=== PATIENT | female | born 1970 | race Caucasian/White ===

== ENCOUNTER → 2017-09-13 09:38 | Outpatient (CLI) | payer OTHER, SELFPAY ==
[2016-12-07 10:00] VITALS: BMI 24.2
[2016-12-07 12:42] VITALS: BP 120/90
--- NOTE | 2017-09-13 09:53 | RAD_ITS ---
STUDY: X-RAY - LEFT ANKLE REASON FOR EXAM: Female, 47 years old. Trauma. TECHNIQUE: 3 view(s) of the ankle. COMPARISON: None. FINDINGS: Normal visualized distal tibia and fibula. Normal medial and lateral malleoli. Normal tibiotalar articulation and ankle mortise. There is a very small plantar calcaneal spur. The visualized subtalar, talonavicular, calcaneocuboid and tarsal articulations are normal. There is no demonstrated fracture. The soft tissue structures are unremarkable. RAD/Ankle min 3 Views IMPRESSION: No demonstrated acute osseous injury. Electronically Signed: Milo Beatty MD at 10:23 EST Tel , Service support ,
== END ==
PROVIDERS: Family Provider Family Medicine; PCP Family Medicine; Visit Provider Physician Assistant Medical
DX: S90.02XA Contusion of left ankle, initial encounter (principal); X58.XXXA Exposure to other specified factors, initial encounter
CPT/HCPCS: 73610

== ENCOUNTER → 2017-10-22 09:49 | Outpatient (CLI) | payer OTHER, SELFPAY ==
[2017-10-22 10:56] LABS: T4 Free Direct 1.03 ng/dL (0.76-1.46); Thyroid Stim Hormone (TSH) 1.71 uIU/mL (0.358-3.74)
== END ==
PROVIDERS: Family Provider Family Medicine; PCP Family Medicine; Visit Provider Nurse Practitioner Family
DX: R00.2 Palpitations (principal); R53.83 Other fatigue
CPT/HCPCS: 36415; 84439; 84443

== ENCOUNTER → 2017-12-23 20:00 | Outpatient (CLI) | payer OTHER, SELFPAY | PROVIDERS: Family Provider Family Medicine; PCP Family Medicine; Visit Provider Nurse Practitioner Acute Care | DX: G47.10 Hypersomnia, unspecified (principal); R06.83 Snoring | CPT/HCPCS: 95810 ==

== ENCOUNTER → 2018-02-18 14:20 | Outpatient (CLI) | payer OTHER, SELFPAY ==
[2018-02-18 14:51] LABS: Absolute Lymphocyte Count 1.49 X10^3/ul (0.83-4.51); Absolute Neutrophil Count 5.4 X10^3/uL (2.0-7.7); Basophil# 0.02 X10^3/uL; Basophil% 0.3 % (0-1); Eosinophil# 0.07 X10^3/uL; Eosinophils% 0.9 % (0-5); Hematocrit 42.5 % (37-47); Hemoglobin 14.4 g/dl (12.0-15.0); Lymphocyte # 1.49 X10^3/ul (4.0); Lymphocyte % 20.1 % (19-41); Mean Corp Hgb Conc 33.9 g/gl (32-36); Mean Corpuscular Hgb 32.7 pg (27.0-32.0); Mean Corpuscular Volume 96.6 fL (81-99); Mean Platelet Vol. 12.1 fl (6.2-12.0); Monocyte% 5.4 % (0-10); Neutrophil # 5.44 X10^3/uL (2.7-7.7); Neutrophil % 73.2 % (47-70); Platelet Count 141 K/mm3 (150-450); RBC Distribution Width CV 12.6 % (11.6-14.6); RBC Distribution Width SD 44.1 fl (35.1-43.9); White Blood Count 7.4 K/mm3 (4.4-11.0)
[2018-02-18 14:52] LABS: POSITIVE COUNT NO; POSITIVE DIFFERENTIAL NO; POSITIVE MORPHOLOGY NO
[2018-02-18 15:17] LABS: ALB/GLOB Ratio 1.2 RATIO (0.9-2.4); AST(SGOT) 22 U/L (15-37); Alanine Aminotransfer ALT/SGPT 28 U/L (13-56); Albumin, Serum 3.8 g/dL (3.2-5.0); Alkaline Phosphatase 96 U/L (45-117); Anion Gap 7 (5-15); BUN 11 mg/dL (7-18); BUN/Creat Ratio 16.2 RATIO (10-20); Calcium,Total 8.4 mg/dL (8.5-10.1); Chloride 104 mmol/L (98-107); Creatinine, Serum 0.68 mg/dL (0.55-1.02); EST Glomerular Filtration Rate 99 mL/min (>60); Est Glom Filt Rate - Afr Amer 120 mL/min (>60); Globulin 3.2 g/dL (2.2-4.2); Glucose 97 mg/dL (74-106); Magnesium 1.9 mg/dL (1.6-2.6); Phosphorus 2.9 mg/dL (2.5-4.9); Potassium 3.8 mmol/L (3.5-5.1); Sodium Level 139 mmol/L (136-145)
[2018-02-20 14:21] LABS: HEPATITIS B SURFACE AG Negative (Negative); Hep B Surface Antibodies Reactive (.)
== END ==
PROVIDERS: Family Provider Family Medicine; PCP Family Medicine; Visit Provider Nurse Practitioner Acute Care
DX: G35 Multiple sclerosis (principal); G43.909 Migraine, unspecified, not intractable, without status migrainosus
CPT/HCPCS: 36415; 80053; 83735; 84100; 85025; 86706; 87340

== ENCOUNTER → 2018-03-19 09:28 | Outpatient (CLI) | payer OTHER, SELFPAY ==
--- NOTE | 2018-03-19 09:39 | MRI_ITS ---
STUDY: MRI CERVICAL SPINE WITH AND WITHOUT CONTRAST REASON FOR EXAM: Female, 47 years old. MS and difficulty with gait TECHNIQUE: Standardized fat and water weighted pulse sequences were obtained in the sagittal and axial following I.V. administration of 8 ml of Gadavist contrast material. COMPARISON: MR cervical spine November 27, 2016 FINDINGS: Normal foramen magnum and brainstem-cervical cord junction. Normal craniovertebral junction. Normal anterior atlantoaxial articulation. Normal odontoid process. Normal cervical lordosis. Normal vertebral bodies and posterior osseous elements. C2-3: Normal endplates. Normal disc height, signal and morphology. Normal central canal and intervertebral neural foramina. C3-4: Normal endplates. Normal disc height, signal and morphology. Normal central canal and intervertebral neural foramina. C4-5: Normal endplates. Normal disc height, signal and morphology. Normal central canal and intervertebral neural foramina. C5-6: Normal endplates. Normal disc height, signal and morphology. Normal central canal and intervertebral neural foramina. C6-7: Normal endplates. Normal disc height, signal and morphology. Normal central canal and intervertebral neural foramina. C7-T1: Normal endplates. Normal disc height, signal and morphology. Normal central canal and intervertebral neural foramina. Normal cervical cord. Normal visualized soft tissue structures. MRI/Spine Cervical W/WO Contrast IMPRESSION: Normal unenhanced and enhanced MR examination of the cervical spine. Electronically Signed: Anselmo Sinclair MD at 0:05 EDT , Service support ,
--- NOTE | 2018-03-19 09:39 | MRI_ITS ---
STUDY: MRI BRAIN WITH AND WITHOUT CONTRAST REASON FOR EXAM: Female, 47 years old. Multiple sclerosis. Fatigue. Muscle spasm. TECHNIQUE: Standardized multiplanar fat and water weighted pulse sequences were obtained. 8 ml of Gadavist contrast material was administered intravenously for the contrast portion of the examination. COMPARISON: November 27, 2016 FINDINGS: The pituitary and pineal regions are normal. The brainstem is normal. The corpus callosum is normal. The 7th and 8th nerve complexes are normal. Both cerebellopontine angles are clear. There is a minimal degree of tonsillar ectopia (3.8 mm). The cerebellar vermis and both are otherwise normal. The ventricles, basal cisterns and cortical sulci are normal with no midline shift and no intra or extra-axial hemorrhage or tumor mass. There is no acute infarction. There continues to be abnormal high signal lesions in the FLAIR data sets located in the left periventricular area (measuring 9.4 x 4.9 mm), just inferior to the right occipital horn measuring 4.8 mm, in a juxtacortical area in the supraventricular right hemisphere measuring 5.5 mm and in the juxtacortical area in the left temporal bone around the sylvian fissure posteriorly. These demonstrate enough Flores's criteria to warrant the diagnosis of multiple sclerosis. The largest index lesions in the left periventricular area had measured 12.6 x 4.5 mm in the prior study of November 27, 2016 and the lesion in the left temporal lobe looks slightly smaller. There are no lesions in the infratentorial space. The calvarium is intact. There are no scalp swelling. The vessels at the base of the brain are normal. The orbits, paranasal sinuses and mastoid air cells are normal. No evidence of optic neuritis. . . MRI/Brain W/WO Contrast IMPRESSION: Flores's criteria are satisfied to warrant a diagnosis of multiple sclerosis. The 2 index lesions in the left periventricular area and in the juxtacortical area in the left temporal lobe look slightly smaller than had been seen in the previous examination. There are no new lesions and no enhancing lesions Mild tonsillar ectopia. Electronically Signed: David Mccormick, at 5:49 EDT Tel , Service support ,
--- NOTE | 2018-03-19 09:39 | MRI_ITS ---
STUDY: MRI THORACIC SPINE WITH AND WITHOUT CONTRAST REASON FOR EXAM: Female, 47 years old. FATIGUE, MUSCLE SPASMS, GAIT ISSUES, MS 11 YRS. TECHNIQUE: 8 ml of Gadavist was administered intravenously for the contrast portion of the examination. COMPARISON: None. FINDINGS: Normal kyphosis of the thoracic spine. There is no substantial scoliosis. T1-2, T2-3, T3-4, T4-5, T5-6, T7-8, T8-9, T9-10, T10-11, T11-12: There is minimal diffuse disc desiccation and intervertebral disc space narrowing without significant central canal or foraminal stenosis. At T6/T7 there is mild disc space narrowing and endplate spondylosis. There is endplate edema as well. At T6 there is a 8mm enhancing nodule (sagittal image #5 series 9) Normal visualized thoracic cord. The soft tissue structures are unremarkable. MRI/Spine Thoracic W/WO Contrast IMPRESSION: Minimal degenerative changes. 8mm enhancing lesion at T6. Further evaluation with CT is recommended. Electronically Signed: Guanaco Parsons MD at 11:17 EDT Tel , Service support ,
== END ==
PROVIDERS: Family Provider Family Medicine; PCP Family Medicine; Visit Provider Nurse Practitioner Acute Care
DX: G35 Multiple sclerosis (principal)
CPT/HCPCS: 70553; 72156; 72157; A9585

== ENCOUNTER 2018-04-02 09:00 | Outpatient (RCR) | payer OTHER, SELFPAY ==
--- NOTE | 2017-12-10 10:39 | HP.PTEVAL ---
Patient's Visit Information ANDREI PINON is a 47 year old F referred to Physical Therapy by LUANNE Dyer with a diagnosis of Migraines. Date of Evaluation: 12/10/17 Physical Therapist: Viri Galeas - Visit Plan Frequency: 2x /Week Duration: 3 Weeks Plan: Modality of dry needling, manual therapy, posture - Subjective Subjective: Migraine LU- about 8 years- Has MS and maybe related. No trauma. Has migraines a few times a week and once they are there they are hard to get rid of. Located along the right temporal and frontal. Triggers: nothing that she can think of. Uses Imatrex and advil- does not do botox yet. Does get sick sometimes but most of the time she is able to push through. No pain that radiates through the jaw or cervical pain- does have thoracic and back pain. N/T in the foot but none in the UE. 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 PMHx: MS, hole in her heart, palpitatinos, A-fib, RA. Meds: Imatrex, Techfodera, Inderol, Topomax, Tegradol, D3, roboxin, paxil. Sleep: disturbed. - Objective Posture: FH, RS, increased kyphosis. Gait: no deviation in LE- decreased trunk rotation. ROM: WFL. Strength: cervical: 4+/5, Scap: fair plus, Shoulder: 4+/5, Elbow: 5/5, Document Review Specialist: equal. Palpation: tender throughout scapula, occiput, cervical musculature and temporalis, Nerve distribution: greater aricular, trigeminal nerve, - Goals Goal 1:: Patient will be I with HEP and progression Goal Time Frame: 4-6 Weeks Goal 2:: Patient will report 1 migraine per week Goal Time Frame: 4-6 Weeks - Rehabilitation Potential Physical Therapy Diagnosis: Patient presents with increased muscle tension and nerve pain associated with migraines Rehabilitation Potential: Fair - Anticipated Interventions Patient/Client Instruction: Educate patient on: Benefits of Fitness Program For the Purpose of:: To improve ability to perform ADL's Therapeutic Exercise to Include: Strength training, Endurance training, Body mechanics, Postural training, Passive ROM, Active ROM, Scapular Strength/Stabilization For the Purpose of:: To improve muscle performance and motor function Manual Therapy Techniques to Include: Mobilization, Functional dry needling, Soft tissue mobilization For the Purpose of:: To improve nutrient delivery to tissue Thank you for the opportunity to evaluate your patient. For Medicare and Medicare HMO plans, please review the plan of care and approve it. It will need to be FAXED BACK to us at [phone] for Medicare purposes. Please let me know if there are questions or concerns regarding this plan of care. Physician Signature: Date:
--- NOTE | 2018-01-07 08:41 | HP.PTEVAL2_ITS ---
Patient's Visit Information ANDREI PINON is a 47 year old F referred to Physical Therapy by LUANNE Dyer with a diagnosis of Plantar Fascitis. Date of Evaluation: 01/07/18 Physical Therapist: Viri Galeas - Visit Plan Frequency: 2x /Week Duration: 2 Weeks Plan: Focus on LE stretching and modalities as needed - Subjective Subjective: Patient reports that her foot has been bothering her about a year- last summer it started. Along the bottom of the foot its burning in the arch. It can also ache. Pain radiates to the achilles but not to the knee. Work: stands on her feet all day- does not always wear supportive shoes but does use memory foam in her shoes. Does have inserts but doesn't always wear them in the summer. Worst: 7/10 Agg: being on her feet all day. Best: 0/10 Eases: being off them. Sleep: disturbed- wakes her up. Is currently doing stretching and water bottle roll in the past few weeks. PMHx: MS, hole in her heart, OA, RA Meds: Imatrex, Techfodera, Inderol, Topomax, Tegradol, D3, roboxin, paxil, migraines. - Objective Objective: Posture: can correct with verbal cues. Gait: no deviation noted. Observation: increased pes planus- poor support shoes. ROM: WFL. Strength: 5/ 5. Palpation: tender along arch and along achilles tendon medially. HR/TR: able. SLS: 5 sec then LOB. Flex: HS: mod, Gastroc: mod, Soleus: mod - Goals Goal 1:: Patient will be I with HEP and progression Goal Time Frame: 4-6 Weeks Goal 2:: Patient will report 0/10 pain for 1 week in the arch Goal Time Frame: 4-6 Weeks Goal 3:: Patient will demo mild restriction in flexibility Goal Time Frame: 4-6 Weeks - Rehabilitation Potential Physical Therapy Diagnosis: Patient presents with hypomobility- she has increased pes planus and decreased flexibility leading to increased pain with ADL's. Rehabilitation Potential: Good - Anticipated Interventions Patient/Client Instruction: Educate patient on: Benefits of Fitness Program Therapeutic Exercise to Include: Balance training, Body mechanics, Postural training, Flexibilty training, Passive ROM, Active ROM For the Purpose of:: To improve muscle performance and motor function, To improve ability to perform ADL's Manual Therapy Techniques to Include: Mobilization, Passive ROM, Functional dry needling, Soft tissue mobilization For the Purpose of:: To improve nutrient delivery to tissue Cryotherapy (ice pack, ice massage): Yes Thermo therapy (hot pack): Yes Ultrasound (thermal/non thermal): Yes Thank you for the opportunity to evaluate your patient. For Medicare and Medicare HMO plans, please review the plan of care and approve it. It will need to be FAXED BACK to us at [phone] for Medicare purposes. Please let me know if there are questions or concerns regarding this plan of care. Physician Signature: Date:
--- NOTE | 2018-05-05 11:46 | HP.PT.NRP ---
HP - Discharge Summary (1) - Patient Information ANDREI PINON was seen in my office for initial evaluation on 12/10/17. The following Plan of Care was established for this patient: Initial Frequency: 2x /Week Initial Duration: 3 Weeks - Anticipated Interventions Patient/Client Instruction: Educate patient on: Benefits of Fitness Program For the Purpose of:: To improve ability to perform ADL's Therapeutic Exercise to Include: Strength training, Endurance training, Body mechanics, Postural training, Passive ROM, Active ROM, Scapular Strength/Stabilization For the Purpose of:: To improve muscle performance and motor function Manual Therapy Techniques to Include: Mobilization, Functional dry needling, Soft tissue mobilization For the Purpose of:: To improve nutrient delivery to tissue This patient was last seen in our office . Pertinent comments regarding their Physical therapy will appear below: Patient has not attended physical therapy in over 4 weeks. At this time patient is appropriate for d/c and return to MD as needed. At this point I will be discontinuing this patient from physical therapy. I would be happy to see this patient again in the future if found appropriate by the physician. Thank you! Viri Galeas
== END 2018-04-02 19:00 | disposition home or self-care (01) ==
LOC: PT 09:00
PROVIDERS: Family Provider Family Medicine; PCP Family Medicine; Visit Provider Nurse Practitioner Acute Care
DX: M72.2 Plantar fascial fibromatosis (principal)
CPT/HCPCS: 97140; 97161

== ENCOUNTER → 2018-04-07 06:24 | Outpatient (CLI) | payer OTHER, SELFPAY ==
--- NOTE | 2018-04-07 13:28 | STRESSREP ---
Stress Test Report Date: 04/07/2018 Procedure: Pharmacologic stress nuclear imaging study Indications: Chest pain Consent: Per the patient Procedure: The patient underwent pharmacologic (Regadenoson) evaluation with a peak heart rate of 105 beats per minute (60 predicted maximal heart rate) and a peak blood pressure of 118/78 mmHg. The baseline ECG demonstrated sinus bradycardia; nonspecific ST segment abnormality. The peak pharmacologic ECG demonstrated continued nonspecific ST segment abnormality. There were no cardiac dysrhythmias pretest, during pharmacologic infusion, or recovery. There was no complaint of chest discomfort during pharmacologic infusion or recovery. The examination was discontinued secondary to completion of protocol. Impression: 1. Pharmacologic (Regadenoson) evaluation 2. Peak pharmacologic ECG with continued nonspecific ST segment abnormality. 3. There were no cardiac dysrhythmias pretest, during pharmacologic infusion, or recovery 4. Nuclear images pending Myocardial perfusion imaging study: Technique: The patient was injected with 11.5 millicuries of technetium 99m Cardiolite and subsequently rest SPECT Cardiolite nuclear imaging was obtained in the horizontal long, vertical long, and short axis views. The patient underwent pharmacologic (Regadenoson) evaluation with a peak heart rate of 105 beats per minute (60 % percent predicted maximal heart rate) and a peak blood pressure of 118/78 mmHg. The patient was injected with 34.2 millicuries of technetium 99m Cardiolite and subsequently stress SPECT Cardiolite nuclear imaging was obtained in the horizontal long, vertical long, and short axis views. A gated Cardiolite study at peak stress was obtained. Interpretation: Rest and stress SPECT Cardiolite nuclear imaging status post realignment, normalization, and attenuation correction demonstrate status post rest a small area of subtle diminished tracer uptake in the mid to distal anterior/anteroapical segments. There are similar type findings on the stress polar map images. There is end systolic thickening and brightening. The gated Cardiolite study demonstrates myocardial thickening and inward wall motion. The reported LVEF is 66 %. Impression: 1. Rest and stress SPECT currently nuclear imaging demonstrate status post stress a small area of subtle diminished tracer uptake in the mid to distal anterior/anteroapical segments potentially compatible shifting soft tissue attenuation/artifact although an area of stress-induced myocardial ischemia cannot necessarily be excluded. 2. The gated Cardiolite study reports an LVEF of 66 %. This note was generated with [employer] software. It may contain incorrect words, spelling, and punctuation that were not noted in checking the note before signing.
== END ==
PROVIDERS: Family Provider Family Medicine; PCP Family Medicine; Visit Provider Internal Medicine Cardiovascular Disease
DX: I48.0 Paroxysmal atrial fibrillation (principal); I49.1 Atrial premature depolarization; I49.3 Ventricular premature depolarization; I47.1 Supraventricular tachycardia; Q21.1 Atrial septal defect; I51.0 Cardiac septal defect, acquired
CPT/HCPCS: 78452; 93017; 93306; A9500; A4216; J2785

== ENCOUNTER → 2018-04-15 14:48 | Outpatient (CLI) | payer OTHER, SELFPAY ==
[2018-04-15 15:17] LABS: Hematocrit 43.1 % (37-47); Hemoglobin 14.2 g/dl (12.0-15.0); Mean Corp Hgb Conc 32.9 g/gl (32-36); Mean Corpuscular Hgb 31.7 pg (27.0-32.0); Mean Corpuscular Volume 96.2 fL (81-99); Mean Platelet Vol. 11.2 fl (6.2-12.0); Platelet Count 150 K/mm3 (150-450); RBC Distribution Width CV 12.6 % (11.6-14.6); Red Blood Count 4.48 M/mm3 (4.2-5.4); White Blood Count 6.3 K/mm3 (4.4-11.0)
[2018-04-15 15:32] LABS: Scan Indicated on CBC? Y/N NO
[2018-04-15 15:52] LABS: Anion Gap 6 (5-15); BUN 14 mg/dL (7-18); BUN/Creat Ratio 16.1 RATIO (10-20); Calcium,Total 8.7 mg/dL (8.5-10.1); Chloride 104 mmol/L (98-107); Creatinine, Serum 0.87 mg/dL (0.55-1.02); EST Glomerular Filtration Rate 74 mL/min (>60); Est Glom Filt Rate - Afr Amer 90 mL/min (>60); Glucose 71 mg/dL (74-106); Potassium 3.9 mmol/L (3.5-5.1); Sodium Level 138 mmol/L (136-145)
[2018-04-15 15:59] LABS: International Normalized Ratio 1.1; Prothrombin Time (Protime)PT. 14.3 SECONDS (11.7-14.9)
[2018-04-15 16:00] LABS: Partial Thromboplast Time 38.3 Seconds (24.1-36.2)
== END ==
PROVIDERS: Family Provider Family Medicine; PCP Family Medicine; Visit Provider Internal Medicine Cardiovascular Disease
DX: R94.39 Abnormal result of other cardiovascular function study (principal); R07.9 Chest pain, unspecified
CPT/HCPCS: 36415; 80048; 85027; 85610; 85730

== ENCOUNTER 2018-05-05 07:48 | Day surgery (SDC) | payer OTHER, SELFPAY ==
[2018-05-04 07:23] VITALS: BMI 24.5
--- NOTE | 2018-05-05 10:38 | CL.D_ITS ---
Patient Name: ANDREI PINON Study Date: 05/05/2018 Performing: Nic Webb MD Ht: 66.14 inches 168 cm : 1970 Wt: 152.12 lbs 69 kg Age: 48 Gender: female BSA: 1.78 PROCEDURE(S) PERFORMED HU70-IGD/COR/LV CLINICAL PROFILE AND INDICATIONS Indications: Cardiac Arrythmia, Other: Abnormal Stress Nuclear Study, Other Heart Failure: None Stress/Imaging Stress Test w/SPECT MPI: Yes Result: PositiveStress Test with SPECT MPI: Positive Angina Classification Anginal Classification w/in 2 Weeks: No symptoms CAD Presentations: No Sxs, no angina. CONCLUSIONS Elevated Left Ventricular End Diastolic Pressure Normal LV size, wall motion,and systolic function LVEF: by LV gram 65 % Normal coronary arteries RECOMMENDATIONS Risk factor modification Medical therapy DESCRIPTION OF PROCEDURE The patient arrived to the procedure lab. The risks and benefits of the procedure as well as a full d escription of our services here and current unavailability of surgical backup were fully explained to the patient and/or their significant other prior to the catheterization. The Timeout was completed, verifying the correct patient and procedure. The patient's procedural site was prepped and draped in the usual fashion. Local anesthetic was given subcutaneously to right radial region with Lidocaine 2% . Using a modified Seldinger technique, arterial access was obtained via the right radial artery, a 6 Fr sheath was inserted. Left Coronary Artery selective angiography was performed in multiple views u sing a 5 Fr. JL3.5 catheter. Right Coronary Artery selective angiography was then performed in multip le views using a 5 Fr. 3DRC (Zeke) catheter. Left Ventriculography was performed in ROD projectio n using a 5 Fr. Pigtail catheter. LV to AO pullback pressures were then recorded.The arterial sheath was pulled and a TR Band was applied for hemostasis w/ 13ml of air CORONARY ANGIOGRAPHY DOMINANCE: Right Dominant LEFT HEART ASSESSMENT Left Ventricular Ejection Fraction: by LV Gram 65 % Normal LV wall motion Elevated Left Ventricular End Diastolic Pressure LVEDP: 17 mmHg LEFT MAIN: Angiographically normal LEFT ANTERIOR DECENDING ARTERY: Angiographically normal CIRCUMFLEX ARTERY: Angiographically normal RIGHT CORONARY ARTERY: Angiographically normal VALVE FINDINGS: Normal Aortic Valve function Normal Mitral Valve function AORTIC ROOT: Angiographically normal COMPLICATIONS No Complications PROCEDURE MEDICATIONS Versed 1 mg IV Fentanyl 50 mcg IV Oxygen: 2 L/min via nasal cannula Heparin diluted in 23cc Heparinized saline. Patient given 10cc IA of this solution. 05/05/2018 10:05: 17 Verapamil 2.5mg, Ntg 100mcgs, 2000 units of Heparin diluted in 23cc Heparinized saline. Patient give n 10cc IA of this solution. 05/05/2018 10:05:17 IV Bolus: .9 NaCl 150ml total 05/05/2018 10:10:35 SUMMARY OF HEMODYNAMIC DATA Time AIR REST ECG 08:18:48 AO 105/59 (80) SA 10:07:23 LV 129/-2, 21 10:17:34 LV 123/4, 17 10:17:40 LV 122/5, 17 10:19:04 LVp 118/4, 19 10:19:10 AOp 122/63 (88) 10:19:15 Signed By Nic Webb MD On 05/05/2018 10:37:43 AM Nic Webb MD
== END 2018-05-05 13:10 | disposition home or self-care (01) ==
LOC: CLSP 07:49
PROVIDERS: Family Provider Family Medicine; PCP Family Medicine; Visit Provider Internal Medicine Cardiovascular Disease
DX: R94.39 Abnormal result of other cardiovascular function study (principal); I48.0 Paroxysmal atrial fibrillation; I49.1 Atrial premature depolarization; I49.3 Ventricular premature depolarization; I47.1 Supraventricular tachycardia; I51.0 Cardiac septal defect, acquired; Q21.1 Atrial septal defect; Z79.82 Long term (current) use of aspirin; Z79.899 Other long term (current) drug therapy; F17.200 Nicotine dependence, unspecified, uncomplicated
CPT/HCPCS: 71046; 93458; J7040; Q9967; C1769; C1894

== ENCOUNTER → 2018-05-06 14:39 | Outpatient (CLI) | payer OTHER, SELFPAY ==
--- NOTE | 2018-05-06 14:41 | CT_ITS ---
STUDY: CT THORACIC SPINE WITHOUT CONTRAST REASON FOR EXAM: Female, 48 years old. Muscle spasms and gait issues. History of multiple sclerosis. Abnormal MRI thoracic spine. RADIATION DOSAGE (If Supplied By Facility): CTDIvol = ( 23.20 ) mGy, DLP = ( 782.80 ) mGycm TECHNIQUE: The patient was scanned in a multi detector CT scanner. High resolution imaging was performed. Images were obtained from C6-7 to L1-2. Sagittal and coronal images were reconstructed. Individualized dose optimization techniques were used for this CT. COMPARISON: None. FINDINGS: Normal visualized cervical spine. Normal kyphosis of the thoracic spine. There is no substantial scoliosis. There is anterior endplate spondylosis and sclerosis of the T6-7 vertebra correlating to the area of abnormal signal intensity on MRI. Additional anterior endplate spondylosis seen T7-T10. There is multilevel degenerative disc disease with loss of the disc space heights. Vacuum phenomenon and system with disc dehydration suggests that the anterior T6-7 and T7-8 disc spaces. There is no demonstrated fracture. The nodule in the posterior T6 vertebra on MRI is not apparent here. The soft tissue structures are unremarkable. There is minor bronchiectasis or emphysematous change in the periphery of the posterior lung gary. CT/Spine Thoracic without Contras IMPRESSION: 1. Spondylotic degenerative changes of the spine, most prominent at T6-7, where there is additional anterior osseous sclerosis that correlates to the region of signal abnormality on MRI. 2. The small nodule seen in the posterior T6 vertebra on MRI is not apparent here. Electronically Signed: Chalo Andrade MD at 16:56 EDT , Service support ,
== END ==
PROVIDERS: Family Provider Family Medicine; PCP Family Medicine; Referring Provider Clinical Nurse Specialist Acute Care; Visit Provider Clinical Nurse Specialist Acute Care
DX: G35 Multiple sclerosis (principal); M89.9 Disorder of bone, unspecified
CPT/HCPCS: 72128

== ENCOUNTER 2018-05-11 08:05 | Emergency (ER) | payer OTHER, SELFPAY ==
[2018-05-11 08:05] VITALS: BP 115/87; PULSE 72; RESP 18; TEMP 36.6; O2SAT 98; BMI 24.5
--- NOTE | 2018-05-11 08:14 | VDUE_ITS ---
Reason For Study: RUE pain s/p RT Radial artery heart cath Right Proximal Right jugular vein is spontaneous, widely patent, phasic, with no intraluminal echogenicity noted. Right subclavian vein is spontaneous, widely patent, phasic, with no intraluminal echogenicity noted. Right Lower Arm Right radial vein is compressible. Right ulnar vein is compressible. Right Arm Right axillary vein is spontaneous, patent, phasic, competent, compressible and demonstrates augmentation. Right brachial vein is compressible. Right cephalic vein is compressible. Right basilic vein is compressible. Incidental finding of RT Radial artery distal absent color flow and doppler signal. Mid - 21.6 cm/s Prox - 12.0 cm/s Prelim given to Dr. Roblero. Interpretation Summary No evidence for acute deep venous thrombosis[right] upper extremity with patent and compressible cephalic and basilic veins. Thrombosed distal right radial artery. Ordering Physician: Hugo Roblero Referring Physician: Ricco Chang Performed By: Yanna Camp RVT ???
--- NOTE | 2018-05-11 08:57 | ED.DCSUM_ITS ---
- ER Visit Summary Date of Service: 05/11/18 Chief Complaint: Right forearm pain History of Present Illness: The patient is a 48 F who presents with right forearm pain. Patient had a cardiac catheterization using a right radial approach 6 days ago. Ever since then she has had pain. It is aching as well as sharp. She has been using ice and heat but has not helped. She denies any swelling. No redness. She just restarted Eliquis today. She takes this for atrial fibrillation as well as a history of DVT in the family. Physical Examination: Vital signs reviewed. Right forearm exam reveals tenderness in the distal forearm area. There is no swelling. She does have a 2+ radial pulse. Her capillary refill is less than 2 seconds on the hand and fingertips. Her neurologic exam is intact and normal. Test Results: Right upper extremity ultrasound reveals absent color flow and Doppler signal of the right radial artery distally. The technologist notes that the flow is normal in the proximal forearm. Emergency Department Course and Treatment: I discussed this with Dr. Webb. He states that the patient had a delay in the restart of her Eliquis until this morning. The patient admits that this morning was her first dose in about a week. Dr. Webb states that this is something that can happen. Her hand is warm with good capillary refill. He states that he will follow-up with the patient. Restarting the Eliquis should help with this problem. Again, the patient has good flow to her hand. I informed her to use ice and heat. She will take Tylenol to help with the discomfort. Treatment Plan: [] Disposition: Discharge Impression: Right radial artery thrombus This note was generated with [employer] dictation software. It may contain incorrect words, spelling, and punctuation that were not noted in review of the chart prior to signing ED Disposition - Plan for ED Patient: Chief Complaint: Upper Extremity Injury Referrals: Ricco Chang DO [Primary Care Provider] -
--- NOTE | 2018-05-11 08:57 | ED.DEP ---
ED Disposition - Plan for ED Patient: Disposition: Home or Assisted Living Chief Complaint: Upper Extremity Injury Instructions: ED DVT Referrals: Ricco Chang DO [Primary Care Provider] -
[2018-05-11 09:07] VITALS: BP 109/53; PULSE 59; RESP 12; O2SAT 99
== END 2018-05-11 09:09 | disposition home or self-care (01) ==
PROVIDERS: Emergency Provider Emergency Medicine; Family Provider Family Medicine; PCP Family Medicine
DX: I74.2 Embolism and thrombosis of arteries of the upper extremities (principal); I48.91 Unspecified atrial fibrillation; I25.10 Atherosclerotic heart disease of native coronary artery without angina pectoris; G35 Multiple sclerosis; Z79.01 Long term (current) use of anticoagulants; Z79.899 Other long term (current) drug therapy; Z72.0 Tobacco use
CPT/HCPCS: 93971; 99282

== ENCOUNTER → 2018-06-10 07:53 | Outpatient (CLI) | payer OTHER, SELFPAY ==
[2018-06-10 08:21] VITALS: BP 97/46; PULSE 69; RESP 16; TEMP 36.7; O2SAT 99; BMI 25.0
[2018-06-10] MEDS: DiphenhydrAMINE 50 MG/ML Syringe 25 MG IV (08:40)
[2018-06-10] MEDS: MethylPREDNISolone 125 MG/2 ML Vial 100 MG IV (08:40)
[2018-06-10 10:02] VITALS: BP 102/50; PULSE 53; RESP 16; TEMP 36.4; O2SAT 98
[2018-06-10 10:36] VITALS: BP 89/52; PULSE 57; TEMP 36.8
[2018-06-10 11:09] VITALS: BP 92/57; PULSE 60; RESP 16; O2SAT 98
[2018-06-10 11:40] VITALS: BP 95/51; PULSE 64; RESP 16; TEMP 36.6; O2SAT 100
[2018-06-10 12:16] VITALS: BP 96/51; PULSE 67; RESP 16; O2SAT 97
== END ==
PROVIDERS: Family Provider Family Medicine; PCP Family Medicine; Referring Provider Nurse Practitioner Acute Care; Visit Provider Nurse Practitioner Acute Care
DX: G35 Multiple sclerosis (principal)
CPT/HCPCS: 96365; 96366 ×2; 96374; 96375; J7050; A4216; J2350

== ENCOUNTER → 2018-06-24 07:49 | Outpatient (CLI) | payer OTHER, SELFPAY ==
[2018-06-24 08:17] VITALS: BP 82/56; PULSE 81; RESP 16; TEMP 36.1; O2SAT 94; BMI 25.0
--- NOTE | 2018-06-24 09:40 | NURSING ---
WAITING ON DOCTOR OR CONFIGURATION MANAGER TO CALL BACK REGARDING DEVELOPMENT OF NECK PAIN POST FIRST OCREVUS INFUSION. PT DOES NOT WISH TO WAIT, LEAVING AND RESCHEDULED FOR NEXT WEEK.
== END ==
PROVIDERS: Family Provider Family Medicine; PCP Family Medicine; Referring Provider Nurse Practitioner Acute Care; Visit Provider Nurse Practitioner Acute Care
DX: G35 Multiple sclerosis (principal)
CPT/HCPCS: A4216

== ENCOUNTER → 2018-08-13 11:28 | Outpatient (CLI) | payer OTHER, SELFPAY ==
--- NOTE | 2018-08-13 11:32 | US_ITS ---
STUDY: Soft tissue neck ULTRASOUND REASON FOR EXAM: Female, 48 years old. Pain in the left neck lateral and posterior TECHNIQUE: Ultrasound evaluation of the thyroid was performed with real-time and static perez-scale imaging. COMPARISON: None. FINDINGS: Normal soft tissue planes. No solid or cystic abnormality. US/Head/Neck Soft Tissue IMPRESSION: No solid or cystic mass. Electronically Signed: Pradip Brito MD at 8:04 EST , Service support ,
== END ==
PROVIDERS: Family Provider Family Medicine; PCP Family Medicine; Referring Provider Nurse Practitioner Acute Care; Visit Provider Nurse Practitioner Acute Care
DX: M89.9 Disorder of bone, unspecified (principal); R52 Pain, unspecified; G35 Multiple sclerosis
CPT/HCPCS: 76536

== ENCOUNTER → 2018-08-21 08:46 | Outpatient (CLI) | payer OTHER, SELFPAY ==
[2018-06-24 08:17] VITALS: BMI 25.0
--- NOTE | 2018-08-21 08:53 | RAD_ITS ---
STUDY: X-RAY - RIGHT TIBIA AND FIBULA REASON FOR EXAM: Female, 48 years old. Anterior tibial pain. Lump in the anterolateral proximal calf. History of surgery 7 years ago. TECHNIQUE: 2 view(s) of the tibia and fibula were obtained. A hemostat was placed over the area of some to hematology and palpable lump. COMPARISON: None. FINDINGS: There are 3 metallic screws overlying the proximal tibial shaft in the region of the anterior tibial tuberosity.. Screws are intact with no evidence for loosening. Otherwise normal visualized tibia. Normal visualized fibula. The soft tissue structures are unremarkable. There is no visualized abnormality in the region marked by a hemostat. RAD/Tibia & Fibula 2 Views IMPRESSION: 3 surgical screws overlying the proximal tibia. Otherwise normal x-ray examination of the tibia and fibula. Electronically Signed: Berry Urias MD at 23:38 EST , Service support ,
== END ==
PROVIDERS: Family Provider Family Medicine; PCP Family Medicine; Referring Provider Family Medicine; Visit Provider Family Medicine
DX: M79.604 Pain in right leg (principal)
CPT/HCPCS: 73590

== ENCOUNTER → 2018-10-30 09:34 | Outpatient (CLI) | payer OTHER, SELFPAY ==
[2018-06-24 08:17] VITALS: BMI 25.0
[2018-10-30 10:23] LABS: Absolute Lymphocyte Count 1.84 X10^3/ul (0.83-4.51); Absolute Neutrophil Count 6.7 X10^3/uL (2.0-7.7); Basophil# 0.02 X10^3/uL; Basophil% 0.2 % (0-1); Eosinophil# 0.07 X10^3/uL; Eosinophils% 0.8 % (0-5); Hematocrit 43.1 % (37-47); Hemoglobin 14.3 g/dl (12.0-15.0); Lymphocyte # 1.84 X10^3/ul (4.0); Lymphocyte % 19.9 % (19-41); Mean Corp Hgb Conc 33.2 g/gl (32-36); Mean Corpuscular Hgb 32.4 pg (27.0-32.0); Mean Corpuscular Volume 97.5 fL (81-99); Mean Platelet Vol. 11.6 fl (6.2-12.0); Monocyte# 0.57 X10^3/uL; Monocyte% 6.2 % (0-10); Neutrophil # 6.74 X10^3/uL (2.7-7.7); Neutrophil % 72.7 % (47-70); Platelet Count 180 K/mm3 (150-450); RBC Distribution Width CV 12.2 % (11.6-14.6); RBC Distribution Width SD 42.6 fl (35.1-43.9); Red Blood Count 4.42 M/mm3 (4.2-5.4); White Blood Count 9.3 K/mm3 (4.4-11.0)
[2018-10-30 10:25] LABS: POSITIVE COUNT NO; POSITIVE DIFFERENTIAL NO; POSITIVE MORPHOLOGY NO
[2018-10-30 10:50] LABS: ALB/GLOB Ratio 1.2 RATIO (0.9-2.4); AST(SGOT) 20 U/L (15-37); Alanine Aminotransfer ALT/SGPT 25 U/L (13-56); Albumin, Serum 3.6 g/dL (3.2-5.0); Alkaline Phosphatase 82 U/L (45-117); Anion Gap 7 (5-15); BUN 13 mg/dL (7-18); BUN/Creat Ratio 16.3 RATIO (10-20); Calcium,Total 8.2 mg/dL (8.5-10.1); Chloride 110 mmol/L (98-107); EST Glomerular Filtration Rate 82 mL/min (>60); Est Glom Filt Rate - Afr Amer 100 mL/min (>60); Globulin 3.1 g/dL (2.2-4.2); Glucose 82 mg/dL (74-106); Potassium 3.5 mmol/L (3.5-5.1); Protein, Total 6.7 g/dL (6.4-8.2); Sodium Level 140 mmol/L (136-145)
== END ==
PROVIDERS: Family Provider Family Medicine; PCP Family Medicine; Referring Provider Clinical Nurse Specialist Acute Care; Visit Provider Clinical Nurse Specialist Acute Care
DX: G35 Multiple sclerosis (principal)
CPT/HCPCS: 36415; 80053; 85025

== ENCOUNTER → 2018-11-13 08:03 | Outpatient (CLI) | payer OTHER, SELFPAY ==
[2018-11-13 08:25] VITALS: BP 95/43; PULSE 44; RESP 16; TEMP 37; O2SAT 98; BMI 25.8
[2018-11-13] MEDS: DiphenhydrAMINE 50 MG/ML Syringe 25 MG IV (08:33)
[2018-11-13] MEDS: MethylPREDNISolone 125 MG/2 ML Vial 100 MG IV (08:34)
== END ==
PROVIDERS: Family Provider Family Medicine; PCP Family Medicine; Referring Provider Clinical Nurse Specialist Acute Care; Visit Provider Clinical Nurse Specialist Acute Care
DX: G35 Multiple sclerosis (principal)
CPT/HCPCS: 96365; 96367; 96375; J7050; A4216; J2350

== ENCOUNTER → 2018-12-04 | Outpatient (CLI) | payer OTHER, SELFPAY ==
[2018-11-20 13:05] VITALS: BMI 27.4
[2018-12-04 08:03] VITALS: BP 106/57; PULSE 72; RESP 18; TEMP 36.8; O2SAT 98; BMI 25.8
[2018-12-04] MEDS: DiphenhydrAMINE 50 MG/ML Syringe 25 MG IV (08:17)
[2018-12-04] MEDS: MethylPREDNISolone 125 MG/2 ML Vial 100 MG IV (08:17)
== END | disposition home or self-care (01) ==
LOC: MEDOUTP 07:57
PROVIDERS: Family Provider Family Medicine; PCP Family Medicine; Referring Provider Clinical Nurse Specialist Acute Care; Visit Provider Clinical Nurse Specialist Acute Care
DX: G35 Multiple sclerosis (principal)
CPT/HCPCS: 96365; 96366 ×2; 96374; 96375; J7050; A4216; J2350

== ENCOUNTER → 2019-02-18 | Outpatient (CLI) | payer OTHER, SELFPAY ==
[2018-12-04 08:03] VITALS: BMI 25.8
[2019-02-18 16:00] LABS: CRP < 2.90 mg/L (0.0-3.0); Erythrocyte Sedimentation Rate 8 mm/hr (0-20); Rheumatoid Factor < 10.0 IU/mL (<15); T4 Free Direct 1.12 ng/dL (0.76-1.46); Thyroid Stim Hormone (TSH) 1.65 uIU/mL (0.358-3.74)
[2019-02-22 12:37] LABS: CCP IgG Antibodies 5 units (0-19)
== END | disposition home or self-care (01) ==
LOC: BFHLAB 13:35
PROVIDERS: Family Provider Family Medicine; PCP Family Medicine; Visit Provider Family Medicine
DX: G35 Multiple sclerosis (principal); M06.9 Rheumatoid arthritis, unspecified; R63.5 Abnormal weight gain
CPT/HCPCS: 36415; 84439; 84443; 85652; 86140; 86200; 86431

== ENCOUNTER → 2019-05-14 07:51 | Outpatient (CLI) | payer OTHER, SELFPAY ==
[2018-12-04 08:03] VITALS: BMI 25.8
[2019-05-14 07:56] VITALS: BP 100/60; PULSE 63; RESP 16; TEMP 36.6; O2SAT 97; BMI 27.4
[2019-05-14] MEDS: DiphenhydrAMINE 50 MG/ML Syringe 25 MG IV (08:14)
[2019-05-14] MEDS: MethylPREDNISolone 125 MG/2 ML Vial 100 MG IV (08:14)
[2019-05-14] MEDS: Ocrelizumab 600mg Infusion 40 MG IV (08:54)
[2019-05-14 14:06] VITALS: BP 111/61; PULSE 69; RESP 16; TEMP 36.6; O2SAT 96
== END ==
PROVIDERS: Family Provider Family Medicine; PCP Family Medicine; Referring Provider Clinical Nurse Specialist Acute Care
DX: G35 Multiple sclerosis (principal)
CPT/HCPCS: 96365; 96366 ×3; 96374; 96375; J7040; A4216; J2350

== ENCOUNTER → 2019-05-31 12:59 | Outpatient (CLI) | payer OTHER, SELFPAY ==
[2019-05-26 09:32] VITALS: BMI 30.7
--- NOTE | 2019-05-31 13:00 | ART_ITS ---
Reason For Study: BLE pain and fatigue (R>L) Left Segmental Pressures Left brachial= 115mmHg. Left dorsalis pedis artery = 110mmHg. Left posterior tibial artery = 119mmHg. The left dorsalis pedis waveforms are triphasic. The left posterior tibial artery waveforms are triphasic. Right Segmental Pressures Right brachial= 104mmHg. Right dorsalis pedis artery = 119mmHg. Right posterior tibial artery = 131mmHg. The right dorsalis pedis waveforms are triphasic. The right posterior tibial artery waveforms are triphasic. Indices The right ankle brachial index by the dorsalis pedis is 1.03. The right ankle brachial index by the posterior tibial artery is 1.14. The left ankle brachial index by the dorsalis pedis is 0.96. The left ankle brachial index by the posterior tibial artery is 1.03. Interpretation Summary Normal bilateral lower extremity resting indices and doppler waveforms. Bilateral volume pulse recordings appear normal. Ordering Physician: Victor Manuel Saldivar Referring Physician: Victor Manuel Saldivar Performed By: Ignacia Patel RVT, RDCS
== END ==
PROVIDERS: Family Provider Family Medicine; PCP Family Medicine; Referring Provider Nurse Practitioner Family; Visit Provider Nurse Practitioner Family
DX: I73.9 Peripheral vascular disease, unspecified (principal); I48.0 Paroxysmal atrial fibrillation; Z72.0 Tobacco use
CPT/HCPCS: 93923

== ENCOUNTER → 2019-10-11 08:51 | Outpatient (CLI) | payer OTHER, SELFPAY ==
[2019-05-26 09:32] VITALS: BMI 30.7
[2019-10-11 09:29] LABS: Absolute Lymphocyte Count 1.83 X10^3/uL (0.83-4.51); Absolute Neutrophil Count 6.4 X10^3/uL (2.0-7.7); Basophil# 0.06 X10^3/uL; Basophil% 0.7 % (0-1); Eosinophil# 0.07 X10^3/uL; Eosinophils% 0.8 % (0-5); Hematocrit 48.4 % (37-47); Hemoglobin 16.1 g/dL (12.0-15.0); Lymphocyte # 1.83 X10^3/ul (4.0); Lymphocyte % 20.4 % (19-41); Mean Corp Hgb Conc 33.3 g/dL (32-36); Mean Corpuscular Hgb 31.8 pg (27.0-32.0); Mean Corpuscular Volume 95.5 fL (81-99); Mean Platelet Vol. 11.2 fl (6.2-12.0); Monocyte# 0.62 X10^3/uL; Monocyte% 6.9 % (0-10); NRBC Flagged by Analyzer 0 % (0-5); Neutrophil # 6.38 X10^3/uL (2.7-7.7); Neutrophil % 70.9 % (47-70); Platelet Count 207 K/mm3 (150-450); Red Blood Count 5.07 M/mm3 (4.2-5.4)
[2019-10-11 10:02] LABS: Vitamin B12 493 pg/mL (211-911)
[2019-10-11 10:08] LABS: AST(SGOT) 18 U/L (15-37); Alanine Aminotransfer ALT/SGPT 26 U/L (13-56); Albumin, Serum 3.8 g/dL (3.2-5.0); Alkaline Phosphatase 106 U/L (45-117); Anion Gap 6 (5-15); BUN 17 mg/dL (7-18); Calcium,Total 8.8 mg/dL (8.5-10.1); Chloride 104 mmol/L (98-107); Creatinine, Serum 0.89 mg/dL (0.55-1.02); EST Glomerular Filtration Rate 72 mL/min (>60); Est Glom Filt Rate - Afr Amer 87 mL/min (>60); Globulin 3.7 g/dL (2.2-4.2); Glucose 78 mg/dL (74-106); Potassium 3.8 mmol/L (3.5-5.1); Protein, Total 7.5 g/dL (6.4-8.2); Sodium Level 139 mmol/L (136-145); Thyroid Stim Hormone (TSH) 2.09 uIU/mL (0.358-3.74)
[2019-10-11 11:51] LABS: Erythrocyte Sedimentation Rate 12 mm/hr (0-20)
[2019-10-13 14:08] LABS: PROEL- A/G Ratio 1.2 (0.7-1.7); PROEL- Albumin 3.6 g/dL (2.9-4.4); PROEL- Alpha-1 Globulin 0.3 g/dL (0.0-0.4); PROEL- Alpha-2 Globulin 0.8 g/dL (0.4-1.0); PROEL- Beta Globulin 0.9 g/dL (0.7-1.3); PROEL- Gamma Globulin 0.9 g/dL (0.4-1.8); PROEL- Globulin, Total 2.9 g/dL (2.2-3.9); PROEL- TOTAL PROTEIN 6.5 g/dL (6.0-8.5); PROELU- Albumin, Urine 21.4 % (.); PROELU- Alpha-1-Globulin,Ur 5.6 % (.); PROELU- Alpha-2-Globulin,Ur 15.6 % (.); PROELU- Beta Globulin, Ur 31.6 % (.); PROELU- Gamma Globulin, Ur 25.8 % (.); Total Protein, Ur 6.5 mg/dL (Not Estab.)
[2019-10-13 16:38] LABS: Arsenic 7245 6 ug/L (2-23)
== END ==
PROVIDERS: PCP Family Medicine; Referring Provider Nurse Practitioner Family; Visit Provider Nurse Practitioner Family
DX: G62.9 Polyneuropathy, unspecified (principal)
CPT/HCPCS: 36415; 80053; 82175; 82607; 83655; 83825; 84165; 84166; 84443; 85025; 85652

== ENCOUNTER → 2019-11-12 07:42 | Outpatient (CLI) | payer OTHER, SELFPAY ==
[2019-05-14 07:56] VITALS: BMI 27.4
[2019-05-26 09:32] VITALS: BMI 30.7
[2019-11-12 07:52] VITALS: BP 111/55; PULSE 71; RESP 16; TEMP 36.2; O2SAT 99; BMI 29.8
[2019-11-12] MEDS: 0.9% NaCl IVPB Med Flush (250 mL) 15 ML IV (07:59)
[2019-11-12] MEDS: MethylPREDNISolone 125 MG/2 ML Vial 100 MG IV (08:00)
[2019-11-12] MEDS: DiphenhydrAMINE 50 MG/ML Syringe 25 MG IV (08:01)
[2019-11-12] MEDS: Ocrelizumab 600mg Infusion 40 MG IV (08:37)
[2019-11-12 14:00] VITALS: BP 105/60; PULSE 77; RESP 16
== END ==
LOC: MEDOUTP 07:43
PROVIDERS: Family Provider Family Medicine; PCP Family Medicine; Referring Provider Clinical Nurse Specialist Acute Care; Visit Provider Clinical Nurse Specialist Acute Care
DX: G35 Multiple sclerosis (principal)
CPT/HCPCS: 96365; 96366 ×3; 96374; 96375; J7040; J7050; J2350

== ENCOUNTER → 2020-06-27 12:27 | Outpatient (CLI) | payer BC, SELFPAY ==
[2019-12-02 10:25] VITALS: BMI 29.9
[2020-06-27 14:24] LABS: Absolute Lymphocyte Count 2.26 X10^3/uL (0.83-4.51); Basophil# 0.03 X10^3/uL; Basophil% 0.3 % (0-1); Eosinophils% 1.1 % (0-5); Hematocrit 45.3 % (37-47); Hemoglobin 15.1 g/dL (12.0-15.0); Lymphocyte # 2.26 X10^3/ul (4.0); Lymphocyte % 25.5 % (19-41); Mean Corp Hgb Conc 33.3 g/dL (32-36); Mean Corpuscular Hgb 31.9 pg (27.0-32.0); Mean Corpuscular Volume 95.8 fL (81-99); Mean Platelet Vol. 12.6 fl (6.2-12.0); Monocyte# 0.51 X10^3/uL; Monocyte% 5.7 % (0-10); NRBC Flagged by Analyzer 0 % (0-5); Neutrophil # 5.95 X10^3/uL (2.7-7.7); Neutrophil % 67.2 % (47-70); Platelet Count 210 K/mm3 (150-450); RBC Distribution Width CV 12.3 % (11.6-14.6); RBC Distribution Width SD 43.8 fl (35.1-43.9); Red Blood Count 4.73 M/mm3 (4.2-5.4); White Blood Count 8.9 K/mm3 (4.4-11.0)
[2020-06-27 14:51] LABS: ALB/GLOB Ratio 1.1 RATIO (0.9-2.4); AST(SGOT) 26 U/L (15-37); Alanine Aminotransfer ALT/SGPT 26 U/L (13-56); Albumin, Serum 3.6 g/dL (3.2-5.0); Alkaline Phosphatase 122 U/L (45-117); Anion Gap 4 (5-15); BUN 12 mg/dL (7-18); BUN/Creat Ratio 14.3 RATIO (10-20); Calcium,Total 8.6 mg/dL (8.5-10.1); Chloride 105 mmol/L (98-107); Creatinine, Serum 0.84 mg/dL (0.55-1.02); EST Glomerular Filtration Rate 77 mL/min (>60); Est Glom Filt Rate - Afr Amer 93 mL/min (>60); Globulin 3.4 g/dL (2.2-4.2); Glucose 76 mg/dL (74-106); Potassium 3.7 mmol/L (3.5-5.1); Sodium Level 140 mmol/L (136-145)
== END ==
PROVIDERS: PCP Family Medicine; Referring Provider Psychiatry & Neurology Neurology; Visit Provider Psychiatry & Neurology Neurology
DX: G35 Multiple sclerosis (principal)
CPT/HCPCS: 36415; 80053; 85025

== ENCOUNTER → 2020-07-07 08:19 | Outpatient (CLI) | payer BC, SELFPAY ==
[2019-12-02 10:25] VITALS: BMI 29.9
[2020-07-07 08:28] VITALS: BP 120/66; PULSE 87; RESP 16; TEMP 36; O2SAT 97; BMI 32.3
[2020-07-07] MEDS: Acetaminophen 500 MG Tablet 1000 MG PO (08:41)
[2020-07-07] MEDS: DiphenhydrAMINE 50 MG/ML Syringe 25 MG IV (08:41)
[2020-07-07] MEDS: Famotidine 20 MG Tablet PO (08:42)
[2020-07-07] MEDS: 0.9% NaCl IVPB Med Flush (250 mL) 15 ML IV (08:42)
[2020-07-07] MEDS: MethylPREDNISolone 125 MG/2 ML Vial IV (08:47)
[2020-07-07] MEDS: Ocrelizumab 600mg Infusion 40 MG IV (09:26)
[2020-07-07 14:45] VITALS: BP 112/63; PULSE 77; RESP 16; TEMP 36.2; O2SAT 95
== END ==
LOC: MEDOUTP 08:20
PROVIDERS: PCP Family Medicine; Referring Provider Nurse Practitioner Family; Visit Provider Nurse Practitioner Family
DX: G35 Multiple sclerosis (principal)
CPT/HCPCS: 96365; 96366 ×3; 96375; J7040; J7050; J2350

== ENCOUNTER → 2020-12-15 08:41 | Outpatient (CLI) | payer OTHER, SELFPAY ==
[2020-10-09 15:02] VITALS: BMI 34.0
[2020-12-15 09:16] LABS: Absolute Lymphocyte Count 1.63 X10^3/uL (0.83-4.51); Absolute Neutrophil Count 3.3 X10^3/uL (2.0-7.7); Basophil# 0.02 X10^3/uL; Basophil% 0.4 % (0-1); Eosinophil# 0.09 X10^3/uL; Eosinophils% 1.6 % (0-5); Hematocrit 43.6 % (37-47); Hemoglobin 14.1 g/dL (12.0-15.0); Lymphocyte # 1.63 X10^3/ul (0.83-4.51); Lymphocyte % 29.4 % (19-41); Mean Corp Hgb Conc 32.3 g/dL (32-36); Mean Corpuscular Hgb 31.1 pg (27.0-32.0); Mean Platelet Vol. 11.4 fl (6.2-12.0); Monocyte# 0.48 X10^3/uL; Monocyte% 8.6 % (0-10); NRBC Flagged by Analyzer 0 % (0-5); Neutrophil # 3.31 X10^3/uL (2.7-7.7); Neutrophil % 59.6 % (47-70); Platelet Count 218 K/mm3 (150-450); RBC Distribution Width CV 12.4 % (11.6-14.6); RBC Distribution Width SD 44.4 fl (35.1-43.9); Red Blood Count 4.54 M/mm3 (4.2-5.4); White Blood Count 5.6 K/mm3 (4.4-11.0)
[2020-12-15 09:44] LABS: AST(SGOT) 17 U/L (15-37); Alanine Aminotransfer ALT/SGPT 24 U/L (13-56); Albumin, Serum 3.2 g/dL (3.2-5.0); Alkaline Phosphatase 124 U/L (45-117); Anion Gap 3 (5-15); BUN 17 mg/dL (7-18); BUN/Creat Ratio 21.3 RATIO (10-20); Bilirubin, Direct 0.08 mg/dL (0.00-0.30); Chloride 107 mmol/L (98-107); Cholesterol 164 mg/dL (200); EST Glomerular Filtration Rate 81 mL/min (>60); Est Glom Filt Rate - Afr Amer 99 mL/min (>60); Globulin 3.3 g/dL (2.2-4.2); Glucose 102 mg/dL (74-106); High Density Lipoprotein 38 mg/dL; Potassium 3.8 mmol/L (3.5-5.1); Protein, Total 6.5 g/dL (6.4-8.2); Sodium Level 137 mmol/L (136-145); Triglycerides 173 mg/dL; Very Low Density Lipoprotein 35 mg/dL (5-40)
[2020-12-16 05:06] LABS: Immunoglobulin A 142 mg/dL (87-352); Immunoglobulin G 744 mg/dL (586-1602)
[2020-12-16 11:06] LABS: Immunoglobulin M 135 mg/dL (26-217)
== END ==
LOC: LAB 08:44
PROVIDERS: Internal Medicine Cardiovascular Disease; PCP Family Medicine; Visit Provider Psychiatry & Neurology Neurology
DX: G35 Multiple sclerosis (principal); E78.00 Pure hypercholesterolemia, unspecified; I48.0 Paroxysmal atrial fibrillation; I49.1 Atrial premature depolarization; I49.3 Ventricular premature depolarization
CPT/HCPCS: 36415; 80053; 80061; 82248; 82784; 85025

== ENCOUNTER → 2021-01-05 08:24 | Outpatient (CLI) | payer OTHER, SELFPAY ==
[2019-12-02 10:25] VITALS: BMI 29.9
[2020-10-09 15:02] VITALS: BMI 34.0
[2021-01-05 08:35] VITALS: BP 113/71; PULSE 75; RESP 16; TEMP 35.7; O2SAT 98; BMI 30.7
[2021-01-05] MEDS: Acetaminophen 500 MG Tablet 1000 MG PO (08:48)
[2021-01-05] MEDS: MethylPREDNISolone 125 MG/2 ML Vial IV (08:48)
[2021-01-05] MEDS: Famotidine 20 MG Tablet PO (08:54)
[2021-01-05] MEDS: DiphenhydrAMINE 50 MG/ML Syringe 25 MG IV (09:02)
[2021-01-05] MEDS: Ocrelizumab 600mg Infusion 40 MG IV (09:25)
[2021-01-05 14:26] VITALS: BP 102/62; PULSE 73; TEMP 36.1
== END ==
LOC: MEDOUTP 08:24
PROVIDERS: PCP Family Medicine; Visit Provider Nurse Practitioner Family
DX: G35 Multiple sclerosis (principal)
CPT/HCPCS: 96365; 96366 ×3; 96374; 96375; J7040; J7050; A4216; J2350

== ENCOUNTER → 2021-01-09 06:24 | Outpatient (CLI) | payer OTHER, SELFPAY ==
[2020-10-09 15:02] VITALS: BMI 34.0
[2021-01-05 08:35] VITALS: BMI 30.7
--- NOTE | 2021-01-09 06:43 | MRI_ITS ---
STUDY: MRI BRAIN WITH AND WITHOUT CONTRAST REASON FOR EXAM: Female, 50 years old. MS, CURRENT MED x 3YEARS TECHNIQUE: Standardized multiplanar fat and water weighted pulse sequences were obtained. 8 mL of IV GADAVIST contrast was administered for the contrast portion of the examination. COMPARISON: None. FINDINGS: Normal size of the ventricles and extra-axial spaces for the patient''s age. Horizontal left thick band of T2 FLAIR hyperintensity white matter just above the posterior body of the left lateral ventricle and small T2 FLAIR hyperintensity subcortical white matter underneath the left posterior insular cistern were present previously and unchanged. They did not enhance with intravenous contrast. Normal bilateral basal ganglia. Normal thalami. There is no extra-axial fluid accumulation. Normal flow voids within the major intracranial circulation suggesting patency by spin echo criteria. Normal venous enhancement. There is no enhancing intra-axial or extra-axial abnormality. Normal sella turcica, pituitary gland, infundibular stalk, optic chiasm and hypothalamus. Normal tectal plate and pineal gland. Normal midbrain, grover and medulla. Normal cerebellum. Normal basal cisterns. Normal bilateral temporal bones. Normal bilateral internal auditory canals. No demonstrated orbital abnormality, within the constraints of a routine brain study. Normal visualized paranasal sinuses. Normal calvarium and skull base. Normal visualized soft tissue structures. Normal visualized upper cervical spine. MRI/Brain W/WO Contrast IMPRESSION: 1. Nonenhancing white matter T2 FLAIR hyperintensity foci just above the posterior body of the left lateral ventricle and in the subcortical white matter behind the left posterior insular cistern were present previously and unchanged. 2. No new finding since 03/19/2018. Electronically Signed: Tavares Murphy MD at 11:40 EDT , Service support ,
== END ==
PROVIDERS: PCP Family Medicine; Referring Provider Psychiatry & Neurology Neurology; Visit Provider Psychiatry & Neurology Neurology
DX: G35 Multiple sclerosis (principal)
CPT/HCPCS: 70553; A9575

== ENCOUNTER → 2021-06-07 06:54 | Outpatient (CLI) | payer OTHER, SELFPAY ==
[2021-06-07 07:24] LABS: Absolute Lymphocyte Count 1.51 X10^3/uL (0.83-4.51); Absolute Neutrophil Count 6.5 X10^3/uL (2.0-7.7); Basophil# 0.04 X10^3/uL; Basophil% 0.5 % (0-1); Eosinophil# 0.13 X10^3/uL; Eosinophils% 1.5 % (0-5); Hematocrit 44.4 % (37-47); Hemoglobin 14.9 g/dL (12.0-15.0); Lymphocyte # 1.51 X10^3/ul (0.83-4.51); Lymphocyte % 17.1 % (19-41); Mean Corp Hgb Conc 33.6 g/dL (32-36); Mean Corpuscular Hgb 31.6 pg (27.0-32.0); Mean Corpuscular Volume 94.3 fL (81-99); Mean Platelet Vol. 11.5 fl (6.2-12.0); Monocyte# 0.68 X10^3/uL; Monocyte% 7.7 % (0-10); NRBC Flagged by Analyzer 0 % (0-5); Neutrophil # 6.47 X10^3/uL (2.7-7.7); Platelet Count 206 K/mm3 (150-450); RBC Distribution Width CV 12.4 % (11.6-14.6); RBC Distribution Width SD 43.4 fl (35.1-43.9); Red Blood Count 4.71 M/mm3 (4.2-5.4); White Blood Count 8.9 K/mm3 (4.4-11.0)
[2021-06-07 07:53] LABS: ALB/GLOB Ratio 0.9 RATIO (0.9-2.4); AST(SGOT) 20 U/L (15-37); Alanine Aminotransfer ALT/SGPT 27 U/L (13-56); Albumin, Serum 3.4 g/dL (3.2-5.0); Alkaline Phosphatase 141 U/L (45-117); Anion Gap 6 (5-15); BUN 22 mg/dL (7-18); BUN/Creat Ratio 25.2 RATIO (10-20); Calcium,Total 8.4 mg/dL (8.5-10.1); Chloride 108 mmol/L (98-107); Creatinine, Serum 0.87 mg/dL (0.55-1.02); EST Glomerular Filtration Rate 73 mL/min (>60); Est Glom Filt Rate - Afr Amer 89 mL/min (>60); Globulin 3.6 g/dL (2.2-4.2); Glucose 92 mg/dL (74-106); Sodium Level 138 mmol/L (136-145)
[2021-06-08 04:07] LABS: Immunoglobulin A 150 mg/dL (87-352); Immunoglobulin G 751 mg/dL (586-1602)
[2021-06-08 12:40] LABS: Immunoglobulin M 130 mg/dL (26-217)
== END ==
PROVIDERS: PCP Family Medicine; Referring Provider Psychiatry & Neurology Neurology; Visit Provider Psychiatry & Neurology Neurology
DX: G35 Multiple sclerosis (principal)
CPT/HCPCS: 36415; 80053; 82784; 85025

== ENCOUNTER → 2021-07-06 08:20 | Outpatient (CLI) | payer OTHER, SELFPAY ==
[2020-10-09 15:02] VITALS: BMI 34.0
[2021-07-06] MEDS: 0.9% NaCl Peripheral Flush Adult/Peds IV ×3 (08:40→13:19)
[2021-07-06] MEDS: DiphenhydrAMINE 25 MG Capsule PO (08:43)
[2021-07-06] MEDS: Famotidine 20 MG Tablet PO (08:43)
[2021-07-06] MEDS: Acetaminophen 500 MG Tablet 1000 MG PO (08:43)
[2021-07-06] MEDS: MethylPREDNISolone 125 MG/2 ML Vial IV (08:44)
[2021-07-06 08:51] VITALS: BP 101/66; PULSE 73; RESP 16; TEMP 36.5; O2SAT 94; BMI 34.0
[2021-07-06] MEDS: Ocrelizumab 600mg Infusion 40 MG IV (09:14)
[2021-07-06 14:23] VITALS: BP 94/70; PULSE 86; RESP 16; TEMP 36.8; O2SAT 93
== END ==
PROVIDERS: PCP Family Medicine; Referring Provider Nurse Practitioner Family; Visit Provider Nurse Practitioner Family
DX: G35 Multiple sclerosis (principal)
CPT/HCPCS: 96365; 96366 ×3; 96374; J7040; A4216; J2350

== ENCOUNTER → 2022-01-11 | Outpatient (CLI) | payer BC, SELFPAY ==
[2022-01-11 08:30] VITALS: BP 134/77; PULSE 87; RESP 16; TEMP 36.3; O2SAT 95
[2022-01-11] MEDS: 0.9% NaCl Peripheral Flush Adult/Peds IV (08:30)
[2022-01-11] MEDS: DiphenhydrAMINE 25 MG Capsule PO (08:42)
[2022-01-11] MEDS: Famotidine 20 MG Tablet PO (08:42)
[2022-01-11] MEDS: Acetaminophen 500 MG Tablet 1000 MG PO (08:42)
[2022-01-11] MEDS: 0.9% NaCl IVPB Med Flush (250 mL) 15 ML IV (08:42)
[2022-01-11] MEDS: MethylPREDNISolone 125 MG/2 ML Vial IV (08:43)
[2022-01-11] MEDS: Ocrelizumab 600mg Infusion 40 MG IV (09:25)
[2022-01-11 14:37] VITALS: BP 114/70; PULSE 73; RESP 16; TEMP 36.1; O2SAT 96
== END | disposition home or self-care (01) ==
PROVIDERS: PCP Family Medicine; Referring Provider Nurse Practitioner Family; Visit Provider Nurse Practitioner Family
DX: G35 Multiple sclerosis (principal)
CPT/HCPCS: 96365; 96366; 96375; J7040; J7050; A4216; J2350

== ENCOUNTER → 2022-02-26 | Outpatient (CLI) | payer BC, SELFPAY | END | disposition home or self-care (01) | PROVIDERS: PCP Family Medicine; Visit Provider Family Medicine | DX: R31.29 Other microscopic hematuria (principal) | CPT/HCPCS: 87086; 87088 ==

== ENCOUNTER 2022-03-07 07:40 | Outpatient (CLI) | payer BC, SELFPAY ==
--- NOTE | 2022-03-07 07:42 | CT_ITS ---
HISTORY: Intermittent hematuria. TECHNIQUE: Helically acquired images were obtained of the abdomen and pelvis without oral or IV contrast. A radiation dose optimization technique was used for this scan. 483 images. COMPARISON: None.. FINDINGS: LOWER CHEST: Lung bases clear. BOWEL: Bowel including appendix nondilated. No focal pericolonic inflammatory change. PERITONEUM: No significant free fluid. LIVER: Unremarkable. GALLBLADDER/BILIARY TREE: Gallbladder present. SPLEEN/PANCREAS: Nonenlarged. KIDNEYS AND URETERS: Mild-moderate right hydroureteronephrosis down to the level of a 3 mm mid to distal ureteral calculus. No left nephrolithiasis or hydronephrosis. ADRENAL GLANDS: No nodules. VESSELS: No abdominal aortic aneurysm. Mild atherosclerosis. PELVIC ORGANS: Hysterectomy. ABDOMINAL WALL: Tiny fat-containing umbilical hernia. BONES: Intact. CT/Abdomen/Pelvis without Cont IMPRESSION: Right hydronephrosis secondary to a 3 mm mid-distal ureteral calculus. Electronically Signed: Morelia Rosenberg MD at 10:19 EDT ,
== END 2022-03-07 23:59 | disposition home or self-care (01) ==
LOC: CT 07:41
PROVIDERS: PCP Family Medicine; Referring Provider Family Medicine; Visit Provider Family Medicine
DX: R31.0 Gross hematuria (principal); R31.29 Other microscopic hematuria
CPT/HCPCS: 74176

== ENCOUNTER → 2022-04-03 | Outpatient (CLI) | payer BC, SELFPAY | END | disposition home or self-care (01) | PROVIDERS: PCP Family Medicine; Visit Provider Family Medicine | DX: N20.0 Calculus of kidney (principal) | CPT/HCPCS: 87086; 87088 ==

== ENCOUNTER 2022-07-09 13:14 | Outpatient (CLI) | payer BC, SELFPAY ==
[2022-07-09 13:32] LABS: Absolute Lymphocyte Count 1.98 X10^3/uL (0.83-4.51); Basophil# 0.03 X10^3/uL; Basophil% 0.4 % (0-1); Eosinophil# 0.07 X10^3/uL; Eosinophils% 0.9 % (0-5); Hematocrit 43.1 % (37-47); Hemoglobin 14.7 g/dL (12.0-15.0); Lymphocyte # 1.98 X10^3/ul (0.83-4.51); Lymphocyte % 26.5 % (19-41); Mean Corp Hgb Conc 34.1 g/dL (32-36); Mean Corpuscular Volume 93.9 fL (81-99); Mean Platelet Vol. 10.7 fl (6.2-12.0); Monocyte% 5.4 % (0-10); NRBC Flagged by Analyzer 0 % (0-5); Neutrophil # 4.98 X10^3/uL (2.7-7.7); Neutrophil % 66.7 % (47-70); Platelet Count 226 K/mm3 (150-450); RBC Distribution Width CV 12.7 % (11.6-14.6); RBC Distribution Width SD 43.8 fl (35.1-43.9); Red Blood Count 4.59 M/mm3 (4.2-5.4); White Blood Count 7.5 K/mm3 (4.4-11.0)
[2022-07-09 13:55] LABS: ALB/GLOB Ratio 1.1 RATIO (0.9-2.4); AST(SGOT) 18 U/L (15-37); Alanine Aminotransfer ALT/SGPT 24 U/L (13-56); Albumin, Serum 3.8 g/dL (3.2-5.0); Alkaline Phosphatase 145 U/L (45-117); Anion Gap 3 (5-15); BUN 12 mg/dL (7-18); BUN/Creat Ratio 13.4 RATIO (10-20); Calcium,Total 9.1 mg/dL (8.5-10.1); Chloride 106 mmol/L (98-107); Creatinine, Serum 0.89 mg/dL (0.55-1.02); EST Glomerular Filtration Rate 71 mL/min (>60); Est Glom Filt Rate - Afr Amer 86 mL/min (>60); Globulin 3.5 g/dL (2.2-4.2); Glucose 101 mg/dL (74-106); Potassium 3.5 mmol/L (3.5-5.1); Protein, Total 7.3 g/dL (6.4-8.2); Sodium Level 141 mmol/L (136-145)
[2022-07-11 05:07] LABS: Immunoglobulin A 146 mg/dL (87-352); Immunoglobulin G 820 mg/dL (586-1602)
[2022-07-11 14:37] LABS: Immunoglobulin M 104 mg/dL (26-217)
== END 2022-07-09 23:59 | disposition home or self-care (01) ==
LOC: LAB 13:16
PROVIDERS: PCP Family Medicine; Referring Provider Psychiatry & Neurology Neurology; Visit Provider Psychiatry & Neurology Neurology
DX: G35 Multiple sclerosis (principal)
CPT/HCPCS: 36415; 80053; 82784; 85025

== ENCOUNTER → 2022-07-12 | Outpatient (CLI) | payer BC, SELFPAY ==
[2022-07-12] MEDS: DiphenhydrAMINE 25 MG Capsule PO (08:24)
[2022-07-12] MEDS: Famotidine 20 MG Tablet PO (08:24)
[2022-07-12] MEDS: MethylPREDNISolone 125 MG/2 ML Vial IV (08:36)
[2022-07-12] MEDS: 0.9% NaCl IVPB Med Flush (250 mL) 15 ML IV (08:36)
[2022-07-12] MEDS: 0.9% NaCl Peripheral Flush Adult/Peds IV (08:41)
[2022-07-12 08:45] VITALS: BP 107/58; PULSE 73; TEMP 36; O2SAT 95
[2022-07-12] MEDS: Ocrelizumab 600mg Infusion 100 MG IV (09:10)
== END | disposition home or self-care (01) ==
LOC: MEDOUTP 08:16
PROVIDERS: PCP Family Medicine; Referring Provider Nurse Practitioner Family; Visit Provider Nurse Practitioner Family
DX: G35 Multiple sclerosis (principal); Z45.2 Encounter for adjustment and management of vascular access device
CPT/HCPCS: 96372; J7040; J7050; A4216; J2350

== ENCOUNTER → 2022-12-18 | Outpatient (CLI) | payer BC, SELFPAY ==
[2022-12-18 08:18] LABS: Absolute Lymphocyte Count 1.42 X10^3/uL (0.83-4.51); Basophil# 0.02 X10^3/uL; Basophil% 0.4 % (0-1); Eosinophil# 0.09 X10^3/uL; Eosinophils% 1.8 % (0-5); Hematocrit 44.5 % (37-47); Hemoglobin 14.9 g/dL (12.0-15.0); Lymphocyte # 1.42 X10^3/ul (0.83-4.51); Mean Corp Hgb Conc 33.5 g/dL (32-36); Mean Corpuscular Hgb 32.5 pg (27.0-32.0); Mean Corpuscular Volume 96.9 fL (81-99); Mean Platelet Vol. 11.6 fl (6.2-12.0); Monocyte# 0.34 X10^3/uL; NRBC Flagged by Analyzer 0 % (0-5); Neutrophil # 3.01 X10^3/uL (2.7-7.7); Neutrophil % 61.6 % (47-70); Platelet Count 201 K/mm3 (150-450); RBC Distribution Width CV 12.6 % (11.6-14.6); RBC Distribution Width SD 45.1 fl (35.1-43.9); Red Blood Count 4.59 M/mm3 (4.2-5.4); White Blood Count 4.9 K/mm3 (4.4-11.0)
[2022-12-18 08:49] LABS: ALB/GLOB Ratio 1.1 RATIO (0.9-2.4); AST(SGOT) 18 U/L (15-37); Alanine Aminotransfer ALT/SGPT 29 U/L (13-56); Albumin, Serum 3.7 g/dL (3.2-5.0); Alkaline Phosphatase 152 U/L (45-117); Anion Gap 6 (5-15); BUN 22 mg/dL (7-18); BUN/Creat Ratio 24.1 RATIO (10-20); Calcium,Total 8.8 mg/dL (8.5-10.1); Chloride 108 mmol/L (98-107); Creatinine, Serum 0.91 mg/dL (0.55-1.02); EST Glomerular Filtration Rate 69 mL/min (>60); Est Glom Filt Rate - Afr Amer 84 mL/min (>60); Globulin 3.4 g/dL (2.2-4.2); Glucose 102 mg/dL (74-106); Protein, Total 7.1 g/dL (6.4-8.2); Sodium Level 141 mmol/L (136-145)
[2022-12-19 05:07] LABS: Immunoglobulin A 132 mg/dL (87-352); Immunoglobulin G 809 mg/dL (586-1602); Immunoglobulin M 111 mg/dL (26-217)
== END | disposition home or self-care (01) ==
LOC: LAB 07:28
PROVIDERS: PCP Family Medicine; Referring Provider Psychiatry & Neurology Neurology; Visit Provider Psychiatry & Neurology Neurology
DX: G35 Multiple sclerosis (principal)
CPT/HCPCS: 36415; 80053; 82784; 85025

== ENCOUNTER 2023-01-10 08:18 | Outpatient (CLI) | payer BC, SELFPAY ==
[2023-01-10 08:27] VITALS: BP 111/66; PULSE 84; RESP 16; TEMP 36.4; O2SAT 94; BMI 30.7
[2023-01-10] MEDS: 0.9% NaCl IVPB Med Flush (250 mL) 15 ML IV (08:45)
[2023-01-10] MEDS: 0.9% NaCl Peripheral Flush Adult/Peds IV (08:45)
[2023-01-10] MEDS: Famotidine 20 MG Tablet PO (08:56)
[2023-01-10] MEDS: Acetaminophen 500 MG Tablet 1000 MG PO (08:56)
[2023-01-10] MEDS: DiphenhydrAMINE 25 MG Capsule PO (08:56)
[2023-01-10] MEDS: MethylPREDNISolone 125 MG/2 ML Vial IV (09:00)
[2023-01-10] MEDS: Ocrelizumab 600mg Infusion 100 MG IV (09:19)
== END 2023-01-10 08:19 | disposition home or self-care (01) ==
LOC: MEDOUTP 08:18
PROVIDERS: PCP Family Medicine; Referring Provider Nurse Practitioner Family; Visit Provider Nurse Practitioner Family
DX: G35 Multiple sclerosis (principal)
CPT/HCPCS: 96365; 96366; 96375; J7040; J7050; A4216; J2350

== ENCOUNTER → 2023-02-04 | Outpatient (CLI) | payer BC, SELFPAY | END | disposition home or self-care (01) | LOC: LABSPEC 14:28 | PROVIDERS: PCP Family Medicine; Referring Provider Family Medicine; Visit Provider Family Medicine | DX: R35.0 Frequency of micturition (principal) | CPT/HCPCS: 87086 ==

== ENCOUNTER → 2023-04-16 | Outpatient (CLI) | payer BC, SELFPAY ==
--- NOTE | 2023-04-16 07:14 | BI_ITS ---
MAMMOGRAPHY - BILATERAL SCREENING REASON FOR EXAM: Female, 52 years old. Routine annual screening examination. PERTINENT HISTORY: Non-contributory. TECHNIQUE: Digital bilateral breast ernie (3D mammographic acquisition) in the CC and MLO projections. 2-D mediolateral oblique (MLO) and craniocaudad (CC) views of both breasts were obtained. CAD: Full Field Digital Mammography with Computer Added Detection was performed. COMPARISON: None. Baseline examination. FINDINGS: Breast Composition: There are scattered areas of fibroglandular density. There are no dominant masses or suspicious calcifications. Small benign-appearing bilateral axillary No other significant abnormalities are identified. BI/SCRN MAMM (CAD)W/ERNIE BILAT IMPRESSION: Negative screening mammogram. Yearly followup mammogram recommended. (A) ASSESSMENT CATEGORY: BIRADS Category 1: Negative. A letter regarding these results will be sent to the patient by the facility within 30 days. Approximately 10% of breast cancers are not detected by mammography. A normal mammogram should not delay biopsy of a clinically suspicious abnormality. [id number] Electronically Signed: Shahid March MD at 8:45 EDT ,
== END | disposition home or self-care (01) ==
LOC: OPBI 07:12
PROVIDERS: PCP Family Medicine; Referring Provider Family Medicine; Visit Provider Family Medicine
DX: Z12.31 Encounter for screening mammogram for malignant neoplasm of breast (principal)
CPT/HCPCS: 77063; 77067

== ENCOUNTER → 2023-04-28 | Outpatient (CLI) | payer BC, SELFPAY ==
--- NOTE | 2023-04-28 07:13 | CT_ITS ---
STUDY: LOW DOSE CT LUNG CANCER SCREENING REASON FOR EXAM: Female, 53 years old. SCREENING. Patient smoked 1 pack per day for 35 years. RADIATION DOSAGE (If Supplied By Facility): CTDIvol = ( 3.02 ) mGy, DLP = ( 100.43 ) mGycm TECHNIQUE: No contrast was administered. Low dose technique was utilized (average mAS-38 and kVp 120). 1.25 mm axial source images with a slice interval of 1.25-mm were reconstructed in lung windows. 2.5 mm axial source images with a slice interval of 2.5-mm were reconstructed in lung windows. 5.0 mm axial source images with a slice interval of 5.0-mm were reconstructed in soft tissue windows. COMPARISON: None. NODULES: There is a 9.6 mm x 6 mm spiculated nodular density in the posterior aspect of the right lung apex. This may represent a focal area of scarring although an early neoplastic process cannot be excluded. Emphysema: Hyperinflation and emphysematous changes. Bullous formation in the upper lobes. Mild linear scarring at the lung bases. Endobronchial lesion: None Aorta: Unremarkable CORONARY ARTERIES: Coronary artery calcification is not seen. Heart: Unremarkable Pulmonary artery: Unremarkable Mediastinal nodes: Unremarkable Other chest and abdominal findings: CT/Low Dose CT Lung Screening IMPRESSION: Lung-RADS category 4A - Screening at 3 months with LDCT or evaluation with PET/CT may be used. IMPORTANT NOTES FOR USE: ACR Lung-RADS Version 1.1 Assessment Categories Release Date: 2018 Category: Coded 0-4 bases on nodule(s) with highest degree of suspicion. Negative screen is defined as categories 1 and 2; a positive screen is defined as categories 3 and 4. Category 3 and 4A nodules that are unchanged on interval CT should be coded as category 2, and individuals returned to screening in 12 months. Category 4X: Category 3 or 4 nodules with additional imaging findings that increase the suspicion of lung cancer, such as spiculation, GGN that doubles in size in 1 year, enlarged lymph notes, etc. Category Modifiers: S (significant finding unrelated to lung cancer) Electronically Signed: Shahid March MD at 8:48 EDT ,
== END | disposition home or self-care (01) ==
PROVIDERS: PCP Family Medicine; Referring Provider Family Medicine; Visit Provider Family Medicine
DX: Z12.2 Encounter for screening for malignant neoplasm of respiratory organs (principal); Z72.0 Tobacco use; J98.4 Other disorders of lung
CPT/HCPCS: 71271

== ENCOUNTER → 2023-05-12 | Outpatient (CLI) | payer BC, SELFPAY ==
--- NOTE | 2023-05-12 08:10 | MRI_ITS ---
EXAM: MR HEAD WITHOUT AND WITH INTRAVENOUS CONTRAST CLINICAL INDICATION: H/O MS, R EYE PAIN TECHNIQUE: Multiplanar and multisequence MR images of the brain were obtained without and with intravenous contrast. CONTRAST: 18 mL of IV Clariscan. COMPARISON: MRI brain with and without contrast 01/09/2021. FINDINGS: BRAIN AND EXTRA-AXIAL SPACES: Horizontal T2 FLAIR hyperintensity perpendicular to the posterior body of the left lateral ventricle without mass effects. This did not enhance with intravenous contrast. This was present previously and is unchanged. T2 FLAIR hyperintensity in the left temporal lobe white matter is also unchanged and did not enhance with contrast. No intra- or extra-axial hemorrhage. No evidence of acute infarct. There is preservation of the perez/white matter interface. Posterior fossa structures are unremarkable. No hydrocephalus. Basal cisterns are patent. No diffusion restriction throughout the brain parenchyma. No abnormally enhancing lesions intra-axially and extra-axially. SELLA: Unremarkable. Normal sella turcica, pituitary gland, infundibular stalk, optic chiasm and hypothalamus. AUDITORY SYSTEM: Unremarkable. The internal auditory canals are patent. BONES/JOINTS: Unremarkable. No discrete lytic or blastic abnormalities. SINUSES: Unremarkable as visualized. Clear. MASTOID AIR CELLS: Unremarkable as visualized. Clear. ORBITS: Unremarkable as visualized. Both globes, extraocular muscles, optic nerves and retrobulbar fat appear unremarkable. VASCULATURE: Unremarkable as visualized. Normal flow voids in the major intracranial circulation. MRI/Brain W/WO Contrast IMPRESSION: 1. No MRI evidence of active MS plaques or any abnormal enhancing lesions intra-axially and extra-axially. 2. Nonspecific T2 FLAIR hyperintensity in the periventricular white matter perpendicular to the posterior body of left lateral ventricle and in the left temporal lobe white matter were present previously and are unchanged. They may be secondary to known history of MS. 3. No interval change when compared to 01/09/2021. Electronically Signed: Tavares Murphy MD at 15:26 EDT ,
== END | disposition home or self-care (01) ==
LOC: MRI 08:01
PROVIDERS: PCP Family Medicine; Referring Provider Psychiatry & Neurology Neurology; Visit Provider Psychiatry & Neurology Neurology
DX: G35 Multiple sclerosis (principal)
CPT/HCPCS: 70553; A9575

== ENCOUNTER → 2023-06-28 | Outpatient (CLI) | payer BC, SELFPAY ==
[2023-06-28 08:52] LABS: Absolute Lymphocyte Count 1.65 X10^3/uL (0.83-4.51); Absolute Neutrophil Count 4.2 X10^3/uL (2.0-7.7); Basophil# 0.03 X10^3/uL; Basophil% 0.5 % (0-1); Eosinophil# 0.09 X10^3/uL; Eosinophils% 1.4 % (0-5); Hemoglobin 14.2 g/dL (12.0-15.0); Lymphocyte # 1.65 X10^3/ul (0.83-4.51); Lymphocyte % 25.8 % (19-41); Mean Corp Hgb Conc 32.3 g/dL (32-36); Mean Corpuscular Hgb 31.1 pg (27.0-32.0); Mean Corpuscular Volume 96.5 fL (81-99); Mean Platelet Vol. 11.2 fl (6.2-12.0); Monocyte# 0.46 X10^3/uL; Monocyte% 7.2 % (0-10); NRBC Flagged by Analyzer 0 % (0-5); Neutrophil # 4.15 X10^3/uL (2.7-7.7); Neutrophil % 64.8 % (47-70); Platelet Count 210 K/mm3 (150-450); RBC Distribution Width CV 12.7 % (11.6-14.6); RBC Distribution Width SD 45.9 fl (35.1-43.9); Red Blood Count 4.56 M/mm3 (4.2-5.4); White Blood Count 6.4 K/mm3 (4.4-11.0)
[2023-06-28 09:30] LABS: ALB/GLOB Ratio 1.1 RATIO (0.9-2.4); AST(SGOT) 18 U/L (15-37); Alanine Aminotransfer ALT/SGPT 23 U/L (13-56); Albumin, Serum 3.5 g/dL (3.2-5.0); Alkaline Phosphatase 171 U/L (45-117); Anion Gap 4 (5-15); BUN 13 mg/dL (7-18); BUN/Creat Ratio 14.6 RATIO (10-20); Calcium,Total 8.6 mg/dL (8.5-10.1); Chloride 112 mmol/L (98-107); Creatinine, Serum 0.89 mg/dL (0.55-1.02); EST Glomerular Filtration Rate 71 mL/min (>60); Est Glom Filt Rate - Afr Amer 86 mL/min (>60); Globulin 3.2 g/dL (2.2-4.2); Glucose 94 mg/dL (74-106); Potassium 3.8 mmol/L (3.5-5.1); Protein, Total 6.7 g/dL (6.4-8.2); Sodium Level 140 mmol/L (136-145)
[2023-06-29 10:07] LABS: Immunoglobulin G 755 mg/dL (586-1602); Immunoglobulin M 100 mg/dL (26-217)
== END | disposition home or self-care (01) ==
LOC: LAB 07:56
PROVIDERS: PCP Family Medicine; Visit Provider Psychiatry & Neurology Neurology
DX: G35 Multiple sclerosis (principal)
CPT/HCPCS: 36415; 80053; 82784; 85025

== ENCOUNTER → 2023-08-13 | Outpatient (CLI) | payer BC, SELFPAY ==
--- NOTE | 2023-08-13 06:48 | CT_ITS ---
INDICATION: RE-EVAL RT LUNG NODULE, SMOKER EXAMINATION: CT CHEST WITH CONTRAST - CT Chest W/ Contrast Injection TECHNIQUE: Helically acquired images were obtained of the chest following IV contrast. A radiation dose optimization technique was used for this scan. IV Contrast dosage and agent: 100 cc of Isovue-370. The CTDI vol is 13.38. The DLP is 575.6. COMPARISON: 04/28/2023. FINDINGS: LUNGS, PLEURA AND LARGE AIRWAYS: Biapical subpleural emphysematous changes. Cystic changes along the posterior subpleural region of bilateral upper and lower lobes which may indicate emphysema versus early fibrosis. There is posterior dependent atelectasis within the bilateral and upper lower lobes. Previously seen area of mild spiculated irregularity in the posterior aspect of the right lung apex again demonstrated and measures approximately 9.4 x 6.6 mm, stable in the interval when measured at similar level. Remainder of the lung gary are clear. No pleural effusion or thickening. No pneumothorax. THYROID: No thyroid lesions. HEART AND PERICARDIUM: Heart size is normal. No pericardial effusion. VESSELS: Thoracic aorta is not dilated. No aortic dissection. No obvious central pulmonary embolism although this study was not performed with the pulmonary embolism protocol. MEDIASTINUM AND TROY: No mediastinal or hilar adenopathy. Esophagus is unremarkable. No hiatal hernia. UPPER ABDOMEN: No acute pathology. BONES: Spondylosis/degenerative disease with no acute fracture or subluxation. CT/Chest WITH Contrast IMPRESSION: Stable spiculated density within the right posterior lung apex which could represent scarring versus indeterminate nodule/lesion. Recommend follow-up CT chest in 6 months to document stability. Mild emphysematous changes, more so through the lung apices. Early posterior pulmonary fibrosis involving the upper lung gary versus mild emphysema. Nonspecific posterior dependent atelectasis, otherwise no acute cardiac pulmonary disease. Electronically Signed: Rody Jeffries MD at 22:51 EST ,
--- OUTSIDE RECORDS SUMMARY | 2023-08-13 06:50 | XMS RPT_ITS | CCD ---
Author Name Unknown Address [address] [place] [address] Organization [facility] Results Test Name Value Interpretation Reference Range Facil ity Progress note 05-04-2021 Note Date & Type Note Facility 05-04-2021 Note HNO ID: [id number] Author: Santi Mojica MD Service: ? Author Type: Physician Type: Progress Notes Filed: 05/04/2021 11:25 AM Note Text: May 04, 2021 Skin biopsy processing and interpretation completed. Please see Procedure section of EMR for report. Santi Mojica MD, PhD [facility] Clinical Note 10-07-2020 Note Date & Type Note Facility 10-07-2020 Note Patient Outreach ([facility]) ANDREI PINON ([id number]) 1970 F Date Time Provider Department 10/07/20 SUSAN POWELL During your visit today, we recorded the following information about you: Allergies As of Date: 10/07/2020 (No Known Allergies) Date Reviewed: 12/01/2019 Reviewed by: Stephenie Dykes) Cain - Fully Assessed Order(s):SARS-COVID VACCINE 1ST DOSE APPT [[id number]] Order #: [id number] FUTURE Prescriptions as of 10/07/2020 Sig: EMGALITY 120 MG/ML SUBCUTANEO* Inject subcutaneously one ho* OCRELIZUMAB 30 MG/ML INTRAVEN* Inject 30 mg intravenously on* APIXABAN 5 MG TABLET Take 5 mg by mouth twice dominick* GABAPENTIN 300 MG CAPSULE Take 300 mg by mouth twice da* PROPRANOLOL ER 60 MG CAPSULE,* Take 60 mg by mouth once dominick* SUMATRIPTAN 100 MG TABLET Take 100 mg by mouth as neede* FLUTICASONE NASAL Use in the nose. Problem List As Of Date 10/07/2020 Noted Resolved MULTIPLE SCLEROSIS [G35] 06/24/2007 LUMBAGO [M54.5] 04/05/2008 Tear of Medial Cartilage or Meniscus of Knee, C*12/01/2009 Encounter Status:Closed by AMBER, PRODUSER on 10/10/20 [facility] Summary Purpose Family History No Family History Records FoundNo Family History Records Found Advance Directives No Advanced Directives Records FoundNo Advanced Directives Records Found Additional Source Comments INFORMATION SOURCE (unrecogn ized section and content) DATE CREATED AUTHOR AUTHOR'S ORGANIZ ATION 09/10/2021 [facility] FOR RECORDS PERTAINING TO PATIENTS WHO ARE OR HAVE BEEN ENROLLED IN A CHEMICAL DEPENDENCY/SUBSTANCEABUSE PROGRAM, SOME INFORMATION MAY BE OMITTED. This clinical summary was aggregated from multiple sources. Caution should be exercised in using it in the provision of clinical care. This summary normalizes information from multiple sources, and as a consequence, information in this document may materially change the coding, format and clinical context of patient data. In addition, data may be omitted in some cases. CLINICAL DECISIONS SHOULD BE BASED ON THE PRIMARY CLINICAL RECORDS. [employer] [facility]. provides no warranty or guarantee of the accuracy or completeness of information in this document.
== END | disposition home or self-care (01) ==
LOC: CT 06:46
PROVIDERS: PCP Family Medicine; Referring Provider Family Medicine; Visit Provider Family Medicine
DX: R91.1 Solitary pulmonary nodule (principal)
CPT/HCPCS: 71260; Q9967

== ENCOUNTER → 2023-10-02 | Outpatient (CLI) | payer BC, SELFPAY ==
--- OUTSIDE RECORDS SUMMARY | 2023-10-02 10:08 | XMS RPT_ITS | CCD ---
Author Name Unknown Address [address] [place] [address] Organization [facility] Results Test Name Value Interpretation Reference Range Facil ity Progress note 05-04-2021 Note Date & Type Note Facility 05-04-2021 Note HNO ID: [id number] Author: Santi Mojica MD Service: ? Author Type: Physician Type: Progress Notes Filed: 05/04/2021 11:25 AM Note Text: May 04, 2021 Skin biopsy processing and interpretation completed. Please see Procedure section of EMR for report. Santi Mojica MD, PhD [facility] Clinical Note 10-07-2020 Note Date & Type Note Facility 10-07-2020 Note Patient Outreach ([facility]) ANDREI PINON ([id number]) 1970 F Date Time Provider Department 10/07/20 SUSAN POWELL During your visit today, we recorded the following information about you: Allergies As of Date: 10/07/2020 (No Known Allergies) Date Reviewed: 12/01/2019 Reviewed by: Stephenie Dykes) Cain - Fully Assessed Order(s):SARS-COVID VACCINE 1ST DOSE APPT [[id number]] Order #: [id number] FUTURE Prescriptions as of 10/07/2020 Sig: EMGALITY [...] Encounter Status:Closed by AMBER, PRODUSER on 10/10/20 [facility] Summary Purpose Family History No Family History Records FoundNo Family History Records Found Advance Directives No Advanced Directives Records FoundNo Advanced Directives Records Found Additional Source Comments INFORMATION SOURCE (unrecogn ized section and content) DATE CREATED AUTHOR AUTHOR'S ORGANIZ ATION 09/10/2021 [facility] FOR RECORDS PERTAINING TO PATIENTS WHO ARE [...] BE BASED ON THE PRIMARY CLINICAL RECORDS. [employer] [facility]. provides no warranty or guarantee of the accuracy or completeness of information in this document.
[2023-10-02 13:32] LABS: ALB/GLOB Ratio 1.1 RATIO (0.9-2.4); AST(SGOT) 24 U/L (15-37); Alanine Aminotransfer ALT/SGPT 27 U/L (13-56); Albumin, Serum 3.6 g/dL (3.2-5.0); Alkaline Phosphatase 175 U/L (45-117); Anion Gap 4 (5-15); BUN 17 mg/dL (7-18); BUN/Creat Ratio 19.5 RATIO (10-20); Calcium,Total 8.6 mg/dL (8.5-10.1); Chloride 107 mmol/L (98-107); Creatinine, Serum 0.87 mg/dL (0.55-1.02); EST Glomerular Filtration Rate 73 mL/min (>60); Est Glom Filt Rate - Afr Amer 88 mL/min (>60); Globulin 3.2 g/dL (2.2-4.2); Glucose 89 mg/dL (74-106); Protein, Total 6.8 g/dL (6.4-8.2); Sodium Level 140 mmol/L (136-145); T4 Free Direct 0.77 ng/dL (0.76-1.46); Thyroid Stim Hormone (TSH) 2.49 uIU/mL (0.358-3.74)
== END | disposition home or self-care (01) ==
LOC: BFHLAB 09:25
PROVIDERS: PCP Family Medicine; Visit Provider Family Medicine
DX: R53.83 Other fatigue (principal); Z51.81 Encounter for therapeutic drug level monitoring; R63.5 Abnormal weight gain
CPT/HCPCS: 36415; 80053; 82533; 84439; 84443

== ENCOUNTER → 2024-01-08 | Outpatient (CLI) | payer BC, SELFPAY ==
--- NOTE | 2024-01-08 14:18 | CT_ITS ---
INDICATION: NEW PERSISTENT COUGH/ F/U ABN CT FOR NODULE EXAMINATION: CT CHEST WITH CONTRAST - CT Chest W/ Contrast Injection TECHNIQUE: Helically acquired images were obtained of the chest following IV contrast. The protocol utilizes one or more of the following dose reduction techniques: automated exposure control, adjustment of mA and/or kV according to patient size,and/or use of iterative reconstruction technique. IV Contrast dosage and agent: 100 cc of Isovue-300 RADIATION DOSAGE (If Supplied By Facility): CTDIvol = ( 11.70 ) mGy, DLP = ( 589.06 ) mGycm COMPARISON: Prior studies dated: 04/28/2023 and 08/13/2023 FINDINGS: LUNGS, PLEURA AND LARGE AIRWAYS: Stable spiculated irregular right apical density measuring about 9 x 6 mm. No new nodules are seen. Subpleural cystic changes are again seen in the posterior bilateral upper lobes unchanged. Small bullous changes in the lung apices also unchanged. No pleural effusion or thickening. No pneumothorax. THYROID: No thyroid lesions. HEART AND PERICARDIUM: Heart size is normal. No pericardial effusion. No evidence of coronary calcifications. VESSELS: Thoracic aorta is not dilated. No aortic dissection. No obvious central pulmonary embolism although this study was not performed with the pulmonary embolism protocol. MEDIASTINUM AND TROY: No mediastinal or hilar adenopathy. Esophagus is unremarkable. No hiatal hernia. UPPER ABDOMEN: No acute pathology. BONES: No suspicious lytic or blastic abnormality. CT/Chest WITH Contrast IMPRESSION: 1. Stable small spiculated right apical lesion. Further follow-up exam in 6 months is recommended to establish 2 year stability. 2. Stable subpleural cystic changes. 3. No acute pulmonary infiltrate, adenopathy or pleural effusions. Electronically Signed: Milo Beatty MD at 10:27 EDT ,
== END | disposition home or self-care (01) ==
LOC: CT 14:17
PROVIDERS: PCP Family Medicine; Referring Provider Family Medicine; Visit Provider Family Medicine
DX: R05.9 Cough, unspecified (principal); R91.1 Solitary pulmonary nodule
CPT/HCPCS: 71260; Q9967

== ENCOUNTER → 2024-04-05 | Outpatient (CLI) | payer BC, SELFPAY ==
--- NOTE | 2024-04-05 09:56 | RAD_ITS ---
INDICATION: PAIN EXAMINATION/TECHNIQUE: X-RAY - RIGHT XR Knee Complete 4 Views or More 4 VIEWS COMPARISON: 08/21/2018 FINDINGS: SOFT TISSUES: No soft tissue swelling or gas. No radiopaque foreign body. BONES/JOINTS: No acute fracture or subluxation.. Normal alignment. Preservation of the joint space.. No sclerotic or destructive changes observed. Redemonstration of a 3 threaded screws associated with the anterior surface of proximal tibia/tibial tubercle. Findings are stable. RAD/Knee 4 or More Views IMPRESSION: 1. No evidence fracture, malalignment or focal bony or joint space abnormality. 2. Orthopedic screws without interval change along the anterior aspect of the proximal tibia. Electronically Signed: Salinas Mireles MD at 23:58 EDT ,
== END | disposition home or self-care (01) ==
LOC: RAD 09:48
PROVIDERS: PCP Family Medicine; Referring Provider Family Medicine; Visit Provider Family Medicine
DX: M25.561 Pain in right knee (principal)
CPT/HCPCS: 73564

== ENCOUNTER → 2024-09-28 | Outpatient (CLI) | payer BC, SELFPAY ==
--- NOTE | 2024-09-28 07:04 | BI_ITS ---
PROCEDURE: SCRN MAMM (CAD)W/ERNIE BILAT REASON FOR EXAM: F, Age 54 y/o, no family history. Routine mammographic follow-up. TECHNIQUE: Bilateral screening digital breast tomosynthesis with 2D and 3D images. Computer aided detection. COMPARISON: Prior exam(s) dating back to April 16, 2023.. FINDINGS: There are scattered areas of fibroglandular density. Stable small fat containing axillary lymph nodes. No suspicious masses, areas of developing architectural distortion, or suspicious calcifications. BI/SCRN MAMM (CAD)W/ERNIE BILAT IMPRESSION: BI-RADS 2: BENIGN. RECOMMEND ANNUAL MAMMOGRAPHIC SCREENING. Follow-up code: Routine Follow-up The patient will be notified of the results by letter. Reading Location: [place] [address]
== END | disposition home or self-care (01) ==
LOC: OPBI 07:02
PROVIDERS: PCP Family Medicine; Referring Provider Family Medicine; Visit Provider Family Medicine
DX: Z12.31 Encounter for screening mammogram for malignant neoplasm of breast (principal)
CPT/HCPCS: 77063; 77067

== ENCOUNTER → 2024-10-07 | Outpatient (CLI) | payer BC, SELFPAY ==
--- NOTE | 2024-10-07 07:52 | CT_ITS ---
PROCEDURE: CT CHEST WITH CONTRAST REASON FOR EXAM: RECHECK LUNG NODULE. TECHNIQUE: Contiguous axial scans of 2.5 mm slice thicknesses. Sagittal and coronal reconstruction images were obtained. One or more dose reduction techniques were used (e.g., automated exposure control, adjustment of mA and/or kv according to patient size, use of iterative reconstruction technique). CONTRAST: ISOVUE 370. 97 ML. COMPARISON: CT CHEST DATED 01/08/2024. FINDINGS: Lungs and Airways: Lungs are clear of pneumonia and congestive changes. Subpleural cystic changes are again noted in the posterior upper lobes. A few pulmonary blebs are noted in the lung apices. The spiculated noncalcified nodule in the right apex on axial image 22 is stable. No new nodules are identified. Pleura: No pleural effusion. No pneumothorax. Mediastinum: No evidence of mediastinal hemorrhage. Heart: Normal heart size. No pericardial effusion. Thoracic Aorta: No aneurysm. Pulmonary arteries: Unremarkable. Bones: No acute osseous abnormality identified. Upper abdomen: CT/Chest WITH Contrast IMPRESSION: 1. Stable small spiculated noncalcified lesion in the right apex. 2. Stable subpleural cystic changes. 3. Small blebs in the lung apices. Reading Location: [place] [address]
== END | disposition home or self-care (01) ==
PROVIDERS: PCP Family Medicine; Referring Provider Family Medicine; Visit Provider Family Medicine
DX: R91.1 Solitary pulmonary nodule (principal)
CPT/HCPCS: 71260; Q9967